=== PATIENT | male | born 1945 | race Caucasian/White ===

== ENCOUNTER 2016-12-23 20:16 | Emergency (ER) | payer OTHER ==
[2016-12-23 20:35] LABS: % IMMATURE GRANULYOCYTES 0.3 % (0.0-1.1); ABSOLUTE IMMATURE GRANULOCYTES 0.03 10^3/uL (0.00-0.10); ADD DIFF? NO; ADD MORPH? NO; ADD SCAN? NO; ATYPICAL LYMPHOCYTE FLAG 0 (0-99); FRAGMENT RBC FLAG 0 (0-99); HEMATOCRIT 47.9 % (40.0-51.0); HEMOGLOBIN 15.9 g/dL (13.7-17.5); LEFT SHIFT FLG 0 (0-99); LIPEMIA HEMOLYSIS FLAG 80 (0-99); MEAN CELL HEMOGLOBIN 29.2 pg (27.9-34.1); MEAN CELL HEMOGLOBIN CONCENTR. 33.2 g/dL (32.4-36.7); MEAN CELL VOLUME 88.1 fL (81.5-99.8); MEAN PLATELET VOLUME 11.3 fL (8.7-11.7); PLATELET CLUMPS FLAG 0 (0-99); PLATELET COUNT 181 10^3/uL (150-400); RED BLOOD CELL COUNT 5.44 10^6/uL (4.40-6.38); RED CELL DISTRIBUTION WIDTH 13.2 % (11.5-15.2)
--- NOTE | 2016-12-23 20:35 | EDPHY ---
H & P Time Seen by Provider: 12/23/16 20:21 HPI/ROS: CHIEF COMPLAINT: Hypertension HISTORY OF PRESENT ILLNESS: Patient is a 69-year-old male with a complicated recent past medical history. The patient has a history of NHL, followed by Dr. Davis. Patient was diagnosed with West Nile virus in 2014. He has been 6 and half weeks in the hospital. Sequelae from his virus included ataxia , dysarthria, visual change, weakness. He currently has 24/7 nursing care. Patient states that earlier today he felt more fatigued than normal. His night nurse came in this evening and found to be hypertensive. His blood pressure was 220/100. However, at that time the patient was asymptomatic as he is now. He has no complaints of headache, chest pain, shortness of breath, new weakness , new numbness. The patient has had neck pain recently but none currently. He denies fevers or chills. REVIEW OF SYSTEMS: My complete review of systems is negative except as mentioned in the HPI. Past Medical/Surgical History: Includes West Nile virus, non-Hodgkin's lymphoma, gout, hypertension, hyperlipidemia Social history: Patient is . No drugs or alcohol. Smoking Status: Never smoked Physical Exam: Vitals noted. When I evaluated the patient his blood pressure was 177/72. GENERAL: No acute distress, alert. Smiling. HEENT: Eyes normal to inspection, normal pharynx, no signs of dehydration. NECK: No thyromegaly, no lymphadenopathy, supple. RESPIRATORY: Clear to auscultation bilaterally, no rales, rhonchi or wheezing. CVS: Regular rate and rhythm, no rubs, murmurs, or gallops. ABDOMEN: Soft, nontender, nondistended, no organomegaly. BACK: Normal to inspection, no CVA tenderness. SKIN: Normal color, no rash, warm, dry. No pallor. EXTREMITIES: No pedal edema, no calf tenderness, no Homans sign or cords, no joint swelling. NEURO/PSYCH: Alert and oriented x3, normal mood and affect. Patient is able to move both his upper and lower extremities. However, the patient does not have ataxia in all extremities. The patient has dysarthria. No obvious cranial nerve deficit. Constitutional: Initial Vital Signs Temperature (C) 36.9 C 12/23/16 20:26 Heart Rate 55 L 12/23/16 20:26 Respiratory Rate 17 12/23/16 20:26 Blood Pressure 177/72 H 12/23/16 20:26 O2 Sat (%) 92 12/23/16 20:26 O2 Delivery Mode Room Air Allergies/Adverse Reactions: diphenhydramine HCl [From Benadryl] Allergy (Verified 09/18/16 14:11) INTOLERANCE fentanyl Allergy (Verified 09/18/16 14:11) INTOLERANCE hydromorphone HCl [From Dilaudid] Allergy (Verified 09/18/16 14:11) INTOLERANCE oxycodone Allergy (Verified 09/18/16 14:11) INTOLERANCE pseudoephedrine HCl [From Sudafed] Allergy (Verified 09/18/16 14:11) INTOLERANCE tramadol Allergy (Verified 09/18/16 14:11) INTOLERANCE Home Medications: Medication Instructions Recorded Ibrutinib [Imbruvica] 420 mg PO DAILY 08/30/15 Allopurinol [Allopurinol 100 MG 100 mg PO DAILY #0 tab 10/04/15 (*)] Atorvastatin Calcium [Lipitor 20 20 mg PO HS #0 tab 10/04/15 mg (*)] Aspirin [Aspirin 81mg (*)] 81 mg PO DAILY 04/04/16 Losartan Potassium 12/23/16 Sertraline HCl 12/23/16 Medical Decision Making ED Course/Re-evaluation: In the emergency department I discussed possible etiologies with the patient and his . I answered all her questions. Laboratory studies and EKG were ordered. Rechecked the patient while here. His laboratory studies were unremarkable. Troponin was negative. Sinus bradycardia 48. Incomplete right bundle-branch block. Patient has flipped T-wave in III. Repeat EKG unchanged. I discussed the results with the patient. No complaints at this time. Follow up his primary care physician tomorrow. He was given warnings prior to leaving. Differential Diagnosis: My differential includes but is not limited to hypertensive urgency, hypertensive emergency, renal dysfunction, ACS, acute GA, dissection, aneurysm, CVA - Data Points Laboratory Results: Laboratory Results 12/23/16 20:00 12/23/16 20:00 12/23/16 12/23/16 20:00 20:00 WBC 11.56 10^3/uL H 10^3/uL (3.80-9.50) RBC 5.44 10^6/uL 10^6/uL (4.40-6.38) Hgb 15.9 g/dL g/dL (13.7-17.5) Hct 47.9 % % (40.0-51.0) MCV 88.1 fL fL (81.5-99.8) MCH 29.2 pg pg (27.9-34.1) MCHC 33.2 g/dL g/dL (32.4-36.7) RDW 13.2 % % (11.5-15.2) Plt Count 181 10^3/uL 10^3/uL (150-400) MPV 11.3 fL fL (8.7-11.7) Neut % (Auto) 43.2 % % (39.3-74.2) Lymph % (Auto) 48.4 % H % (15.0-45.0) [place] % (Auto) 6.3 % % (4.5-13.0) Eos % (Auto) 0.8 % % (0.6-7.6) Baso % (Auto) 1.0 % % (0.3-1.7) Nucleat RBC Rel Count 0.0 % % (0.0-0.2) Absolute Neuts (auto) 5.00 10^3/uL 10^3/uL (1.70-6.50) Absolute Lymphs (auto) 5.60 10^3/uL H 10^3/uL (1.00-3.00) Absolute Monos (auto) 0.73 10^3/uL 10^3/uL (0.30-0.80) Absolute Eos (auto) 0.09 10^3/uL 10^3/uL (0.03-0.40) Absolute Basos (auto) 0.11 10^3/uL H 10^3/uL (0.02-0.10) Absolute Nucleated RBC 0.00 10^3/uL 10^3/uL (0-0.01) Immature Gran % 0.3 % % (0.0-1.1) Immature Gran # 0.03 10^3/uL 10^3/uL (0.00-0.10) Sodium 144 mEq/L mEq/L (134-144) Potassium 4.6 mEq/L mEq/L (3.5-5.2) Chloride 101 mEq/L mEq/L (97-110) Carbon Dioxide 32 mEq/l H mEq/l (22-31) Anion Gap 11 mEq/L mEq/L (8-16) BUN 22 mg/dL mg/dL (7-23) Creatinine 0.8 mg/dL mg/dL (0.7-1.3) Estimated GFR > 60 Glucose 88 mg/dL mg/dL (70-100) Calcium 10.0 mg/dL mg/dL (8.5-10.4) Troponin I < 0.012 ng/mL ng/mL (0-0.034) Departure - Departure Disposition: Home, Routine, Self-Care Clinical Impression: Hypertension Qualifiers: Hypertension type: essential hypertension Qualified Code(s): I10 - Essential ( primary) hypertension Condition: Fair Instructions: Hypertension (ED) Additional Instructions: Return with increasing blood pressures, chest pain, shortness of breath or any other concerns. Referrals: RIKY LEWIS [Other] - 1-2 days without fail
--- NOTE | 2016-12-23 20:50 | CPEKG ---
Heart Rate: 48 RR Interval: 1250 P-R Interval: 188 QRSD Interval: 104 QT Interval: 484 QTC Interval: 433 P [place]: 28 QRS [place]: -88 T Wave [place]: 13 EKG Severity - ABNORMAL ECG - EKG Impression: SINUS BRADYCARDIA EKG Impression: INCOMPLETE RBBB AND LAFB EKG Impression: RIGHT VENTRICULAR HYPERTROPHY EKG Impression: ST DEPRESSION, CONSIDER ISCHEMIA, ANT-LAT LDS Electronically Signed By: Avril Peter 23-Dec-2016 22:25:36
[2016-12-23 21:11] LABS: ANION GAP 11 mEq/L (8-16); CARBON DIOXIDE 32 mEq/l (22-31); CHLORIDE 101 mEq/L (97-110); CREATININE 0.8 mg/dL (0.7-1.3); GLOMERULAR FILTRATION RATE > 60; GLUCOSE 88 mg/dL (70-100); POTASSIUM 4.6 mEq/L (3.5-5.2); SODIUM 144 mEq/L (134-144)
[2016-12-23 21:22] VITALS: O2SAT 91
[2016-12-23 21:30] LABS: TROPONIN I < 0.012 ng/mL (0-0.034)
[2016-12-23 22:16] VITALS: BP 157/68; PULSE 48; RESP 20; TEMP 97.5
--- NOTE | 2016-12-24 08:29 | CPEKG ---
Heart Rate: 49 RR Interval: 1224 P-R Interval: 208 QRSD Interval: 108 QT Interval: 480 QTC Interval: 434 P [place]: 56 QRS [place]: -84 T Wave [place]: -2 EKG Severity - ABNORMAL ECG - EKG Impression: SINUS BRADYCARDIA EKG Impression: INCOMPLETE RBBB AND LAFB EKG Impression: ST DEPRESSION, CONSIDER ISCHEMIA, DIFFUSE LDS Electronically Signed By: Jorge Turner 24-Dec-2016 08:39:00
== END 2016-12-23 22:16 | disposition home or self-care (01) ==
LOC: EDUNIT#
DX: I10 Essential (primary) hypertension (principal); Z79.82 Long term (current) use of aspirin

== ENCOUNTER → 2017-01-11 | Outpatient (CLI) | payer OTHER | LOC: BHCLAF 10:30 | PROVIDERS: ATTEND Internal Medicine Cardiovascular Disease | DX: I10 Essential (primary) hypertension (principal); E78.5 Hyperlipidemia, unspecified | CPT/HCPCS: 93005-PO ==

== ENCOUNTER → 2017-01-17 | Outpatient (CLI) | payer OTHER | LOC: FIMAGING 13:08 | PROVIDERS: ATTEND Nurse Practitioner | DX: R05 Cough (principal); R91.8 Other nonspecific abnormal finding of lung field ==

== ENCOUNTER → 2017-01-18 | Outpatient (CLI) | payer OTHER | LOC: BHFA 15:30 | PROVIDERS: ATTEND Internal Medicine Cardiovascular Disease | DX: R53.83 Other fatigue (principal) ==

== ENCOUNTER 2017-01-19 10:18 | Inpatient (IN) | payer OTHER ==
--- NOTE | 2017-01-19 10:27 | EDPHY ---
H & P Time Seen by Provider: 01/19/17 10:26 HPI/ROS: CHIEF COMPLAINT: Fever and weakness HISTORY OF PRESENT ILLNESS: The patient initially went to [facility] to see his primary care provider and was sent here. Patient started getting sick 6 days ago with intermittent fevers to 100.5 with increasing weakness. he had a chest x-ray that was negative. Today continues with severe weakness and is unable to walk even with assistance. There is a report that he was slightly more weak on the left sided his primary care physician's office but the patient denies having that symptom here to me. Generalized weakness is not better worse with anything. Associated with intermittent fevers. Not focal. REVIEW OF SYSTEMS: Eye: Patient has chronic double vision since his West Nile uses a prism glasses , no change. ENT: no sore throat Cardiac: no chest pain or syncope Pulmonary: Cough and chest congestion with no hemoptysis and does not feel short of breath. Abdomen: no vomiting, diarrhea, abdominal pain Musculoskeletal: no back pain Skin: no rash Neuro: Mild headache but not sudden onset or worst of life. Chronically slurred speech since but says it is worse today. Constitutional: Fever and chills : no urinary symptoms A comprehensive 10 point review of systems is otherwise negative aside from elements mentioned in the history of present illness. PAST MEDICAL HISTORY: Includes hypertension, prostate cancer, non-Hodgkin's lymphoma, gout, hyperlipidemia. West Nile virus in 2015. Has a equipment monitor phototypesetting placed yesterday by [facility] for persistent bradycardia. Social history: No recent foreign travel General Appearance: Alert and conversant, cooperative. Eyes: No scleral icterus. ENT, Mouth: Normal mucous membranes. No pharyngeal erythema or exudate and no trismus. Respiratory: Normal respiratory effort, breath sounds equal, lungs are clear to auscultation. Cardiovascular: Regular rate and rhythm. No murmur. Gastrointestinal: Abdomen is soft and non tender. Neurological: Alert and oriented x3. Some slurring of the speech which is chronic. left facial droop, normal movement and sensation in all extremities. On my exam he has good channel installer strength bilaterally and can lift each leg off the bed independently. I do not appreciate any left-sided weakness in extremities on physical exam at the time of my evaluation. Skin: Warm and dry, no rashes. Musculoskeletal: No peripheral edema and no joint swelling. Neck as full range of motion without any meningeal signs. Psychiatric: Not agitated. Emergency Department course/MDM: Plan for infection screen with chest x-ray urinalysis and influenza testing. Noncontrast head CT. Plan for admission for further evaluation of weakness. 1210: Results discussed. No evidence for pneumonia UTI or influenza. 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 Does not have focal deficit on exam to suggest acute stroke, CT head negative for acute. Admission for supportive care. Likely nonspecific viral syndrome creating debilitating weakness in a patient with multiple pre-existing conditions. Smoking Status: Never smoked Constitutional: Initial Vital Signs Temperature (C) 36.9 C 01/19/17 10:22 Heart Rate 48 L 01/19/17 10:22 Respiratory Rate 20 01/19/17 10:22 Blood Pressure 139/60 H 01/19/17 10:22 O2 Sat (%) 94 01/19/17 10:22 O2 Delivery Mode Nasal Cannula O2 (L/minute) 2 Allergies/Adverse Reactions: diphenhydramine HCl [From Benadryl] Allergy (Verified 01/19/17 10:22) INTOLERANCE fentanyl Allergy (Verified 01/19/17 10:22) INTOLERANCE hydromorphone HCl [From Dilaudid] Allergy (Verified 01/19/17 10:22) INTOLERANCE oxycodone Allergy (Verified 01/19/17 10:22) INTOLERANCE pseudoephedrine HCl [From Sudafed] Allergy (Verified 01/19/17 10:22) INTOLERANCE tramadol Allergy (Verified 01/19/17 10:22) INTOLERANCE Home Medications: Medication Instructions Recorded Ibrutinib [Imbruvica] 420 mg PO DAILY 08/30/15 Allopurinol [Allopurinol 100 MG 100 mg PO DAILY #0 tab 10/04/15 (*)] Atorvastatin Calcium [Lipitor 20 20 mg PO HS #0 tab 10/04/15 mg (*)] Aspirin [Aspirin 81mg (*)] 81 mg PO DAILY 04/04/16 Docusate Sodium [Colace 100 MG (*)] 100 mg PO BID 01/19/17 Famotidine [Pepcid 20 MG (*)] 20 mg PO BID 01/19/17 Herbals/Supplements -Info Only 1 ea PO DAILY 01/19/17 Lidocaine 5% [Lidoderm 5% Patch 1 ea TD HS 01/19/17 (*)] Losartan Potassium [Cozaar] 100 mg PO DAILY 01/19/17 Sertraline HCl [Zoloft 50mg (*)] 50 mg PO DAILY 01/19/17 Medical Decision Making - Diagnostics EKG Interpretation: 12-lead EKG interpreted by me; official reading is in trace master. My interpretation is sinus bradycardia with left anterior fascicular block, morphology not significantly changed since [facility]. Imaging: Noncontrast head CT per Dr. Oakes negative for acute abnormality at 11:56 a.m. Differential Diagnosis: Differential diagnosis considered for weakness including but not limited to electrolyte abnormality, depression, anxiety, CVA, spinal cord abnormality, and infectious causes. Consult/Admit Bed Type: [place] [id number] - Data Points Laboratory Results: Laboratory Results 01/19/17 10:36 01/19/17 10:36 01/19/17 01/19/17 01/19/17 11:20 10:36 10:36 WBC RBC Hgb POC Hgb Hct POC Hct MCV MCH MCHC RDW Plt Count MPV Neut % (Auto) Lymph % (Auto) [place] % (Auto) Eos % (Auto) Baso % (Auto) Nucleat RBC Rel Count Absolute Neuts (auto) Absolute Lymphs (auto) Absolute Monos (auto) Absolute Eos (auto) Absolute Basos (auto) Absolute Nucleated RBC Immature Gran % Immature Gran # PT INR APTT VBG Lactic Acid POC Sodium Sodium 142 mEq/L mEq/L (134-144) POC Potassium Potassium 3.8 mEq/L mEq/L (3.5-5.2) POC Chloride Chloride 100 mEq/L mEq/L (97-110) Carbon Dioxide 31 mEq/l mEq/l (22-31) Anion Gap 11 mEq/L mEq/L (8-16) POC BUN BUN 18 mg/dL mg/dL (7-23) Creatinine 0.8 mg/dL mg/dL (0.7-1.3) POC Creatinine Estimated GFR > 60 Glucose 84 mg/dL mg/dL (70-100) POC Glucose Calcium 9.6 mg/dL mg/dL (8.5-10.4) Total Bilirubin 1.0 mg/dL mg/dL (0.1-1.4) Urine Color TNP Urine Appearance TNP Urine pH TNP Ur Specific Colp TNP Urine Protein TNP Urine Ketones TNP Urine Blood TNP Urine Nitrate TNP Urine Bilirubin TNP Urine Urobilinogen TNP Ur Leukocyte Esterase TNP Urine RBC 3-5 /hpf H /hpf (0-3) Urine WBC 3-5 /hpf H /hpf (0-3) Ur Epithelial Cells TRACE /lpf /lpf (NONE-1+) Urine Mucus TRACE /lpf /lpf (NONE-1+) Urine Glucose TNP Influenza Typ A,B (DFA) NEGATIVE FOR FLU (NEGATIVE) 01/19/17 01/19/17 01/19/17 10:36 10:36 10:36 WBC 10.98 10^3/uL H 10^3/uL (3.80-9.50) RBC 5.37 10^6/uL 10^6/uL (4.40-6.38) Hgb 15.5 g/dL g/dL (13.7-17.5) POC Hgb Hct 46.5 % % (40.0-51.0) POC Hct MCV 86.6 fL fL (81.5-99.8) MCH 28.9 pg pg (27.9-34.1) MCHC 33.3 g/dL g/dL (32.4-36.7) RDW 13.2 % % (11.5-15.2) Plt Count 180 10^3/uL 10^3/uL (150-400) MPV 11.0 fL fL (8.7-11.7) Neut % (Auto) 61.9 % % (39.3-74.2) Lymph % (Auto) 29.4 % % (15.0-45.0) [place] % (Auto) 7.2 % % (4.5-13.0) Eos % (Auto) 0.4 % L % (0.6-7.6) Baso % (Auto) 0.8 % % (0.3-1.7) Nucleat RBC Rel Count 0.0 % % (0.0-0.2) Absolute Neuts (auto) 6.80 10^3/uL H 10^3/uL (1.70-6.50) Absolute Lymphs (auto) 3.23 10^3/uL H 10^3/uL (1.00-3.00) Absolute Monos (auto) 0.79 10^3/uL 10^3/uL (0.30-0.80) Absolute Eos (auto) 0.04 10^3/uL 10^3/uL (0.03-0.40) Absolute Basos (auto) 0.09 10^3/uL 10^3/uL (0.02-0.10) Absolute Nucleated RBC 0.00 10^3/uL 10^3/uL (0-0.01) Immature Gran % 0.3 % % (0.0-1.1) Immature Gran # 0.03 10^3/uL 10^3/uL (0.00-0.10) PT 13.3 SEC SEC (12.0-15.0) INR 1.02 (0.83-1.16) APTT 29.2 SEC SEC (23.0-38.0) VBG Lactic Acid 1.0 mmol/L mmol/L (0.7-2.1) POC Sodium Sodium POC Potassium Potassium POC Chloride Chloride Carbon Dioxide Anion Gap POC BUN BUN Creatinine POC Creatinine Estimated GFR Glucose POC Glucose Calcium Total Bilirubin Urine Color Urine Appearance Urine pH Ur Specific Colp Urine Protein Urine Ketones Urine Blood Urine Nitrate Urine Bilirubin Urine Urobilinogen Ur Leukocyte Esterase Urine RBC Urine WBC Ur Epithelial Cells Urine Mucus Urine Glucose Influenza Typ A,B (DFA) 01/19/17 10:34 WBC RBC Hgb POC Hgb 16.0 gm/dL gm/dL (14.5-17.3) Hct POC Hct 47 % % (42.8-50.6) MCV MCH MCHC RDW Plt Count MPV Neut % (Auto) Lymph % (Auto) [place] % (Auto) Eos % (Auto) Baso % (Auto) Nucleat RBC Rel Count Absolute Neuts (auto) Absolute Lymphs (auto) Absolute Monos (auto) Absolute Eos (auto) Absolute Basos (auto) Absolute Nucleated RBC Immature Gran % Immature Gran # PT INR APTT VBG Lactic Acid POC Sodium 141 mEq/L mEq/L (134-144) Sodium POC Potassium 3.6 mEq/L mEq/L (3.3-5.0) Potassium POC Chloride 98 mEq/L mEq/L (96-108) Chloride Carbon Dioxide Anion Gap POC BUN 18 mg/dL mg/dL (7-23) BUN Creatinine POC Creatinine 0.8 mg/dL mg/dL (0.8-1.5) Estimated GFR Glucose POC Glucose 86 mg/dL mg/dL (70-100) Calcium Total Bilirubin Urine Color Urine Appearance Urine pH Ur Specific Colp Urine Protein Urine Ketones Urine Blood Urine Nitrate Urine Bilirubin Urine Urobilinogen Ur Leukocyte Esterase Urine RBC Urine WBC Ur Epithelial Cells Urine Mucus Urine Glucose Influenza Typ A,B (DFA) Medications Given: Discontinued Medications Sodium Chloride (Ns) 1,000 mls @ 3,000 mls/hr IV ONCE ONE Stop: 01/19/17 12:39 Last Admin: 01/19/17 12:30 Dose: 1,000 mls Point of Care Test Results: 01/19/17 10:34 POC Sodium 141 POC Potassium 3.6 POC Chloride 98 POC BUN 18 POC Creatinine 0.8 POC Glucose 86 Departure - Departure Disposition: [facility] Inpatient Acute Clinical Impression: Weakness Condition: Fair
[2017-01-19 10:47] LABS: % IMMATURE GRANULYOCYTES 0.3 % (0.0-1.1); ABSOLUTE IMMATURE GRANULOCYTES 0.03 10^3/uL (0.00-0.10); ADD DIFF? NO; ADD MORPH? NO; ADD SCAN? NO; ATYPICAL LYMPHOCYTE FLAG 0 (0-99); FRAGMENT RBC FLAG 0 (0-99); HEMATOCRIT 46.5 % (40.0-51.0); HEMOGLOBIN 15.5 g/dL (13.7-17.5); LEFT SHIFT FLG 0 (0-99); LIPEMIA HEMOLYSIS FLAG 80 (0-99); MEAN CELL HEMOGLOBIN 28.9 pg (27.9-34.1); MEAN CELL HEMOGLOBIN CONCENTR. 33.3 g/dL (32.4-36.7); MEAN CELL VOLUME 86.6 fL (81.5-99.8); PLATELET CLUMPS FLAG 0 (0-99); PLATELET COUNT 180 10^3/uL (150-400); RED BLOOD CELL COUNT 5.37 10^6/uL (4.40-6.38); RED CELL DISTRIBUTION WIDTH 13.2 % (11.5-15.2)
--- NOTE | 2017-01-19 10:55 | CPEKG ---
Heart Rate: 46 RR Interval: 1304 P-R Interval: 188 QRSD Interval: 114 QT Interval: 476 QTC Interval: 417 P [place]: 41 QRS [place]: 261 T Wave [place]: 8 EKG Severity - ABNORMAL ECG - EKG Impression: SINUS BRADYCARDIA EKG Impression: LEFT ANTERIOR FASCICULAR BLOCK EKG Impression: PROBABLE POSTERIOR INFARCT Electronically Signed By: Basilio Wise 19-Jan-2017 10:56:11
[2017-01-19 11:06] LABS: INR 1.02 (0.83-1.16); PROTIME(PATIENT) 13.3 SEC (12.0-15.0)
[2017-01-19 11:07] LABS: APTT 29.2 SEC (23.0-38.0)
[2017-01-19 11:11] LABS: ANION GAP 11 mEq/L (8-16); CALCIUM 9.6 mg/dL (8.5-10.4); CARBON DIOXIDE 31 mEq/l (22-31); CHLORIDE 100 mEq/L (97-110); CREATININE 0.8 mg/dL (0.7-1.3); GLOMERULAR FILTRATION RATE > 60; GLUCOSE 84 mg/dL (70-100); POTASSIUM 3.8 mEq/L (3.5-5.2); SODIUM 142 mEq/L (134-144)
[2017-01-19 12:07] LABS: MUCUS TRACE /lpf (NONE-1+)
[2017-01-19] MEDS ORDERED: ONDANSETRON DISINTEGRATING 4 MG TAB PO PRN (12:20)
[2017-01-19] MEDS ORDERED: ACETAMINOPHEN 325 MG TAB PO PRN (12:20)
[2017-01-19] MEDS ORDERED: ONDANSETRON 4 MG/2 ML VIAL IVP PRN (12:20)
[2017-01-19] MEDS ORDERED: NS 1,000 ML IV ONE (12:20)
[2017-01-19 14:59] LABS: COLOR YELLOW; LEUKOCYTE ESTERASE,URINE NEGATIVE (NEGATIVE); NITRITE,URINE NEGATIVE (NEGATIVE)
[2017-01-19] MEDS: NS 1,000 ML IV SCH (15:41)
--- NOTE | 2017-01-19 15:52 | GHP ---
[f rep st] HISTORY AND PHYSICAL DATE OF ADMISSION: 01/19/2017 CHIEF COMPLAINT: Weakness. 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 The patient endorses some runny nose and sore throat, minimal nonproductive cough, some headache, chronic vision changes, which have been a bit worse in the last 4 days. The patient denies any shortness of breath, any chest pain, any abdominal pain. Denies any diarrhea, dysuria, hematuria, new rashes, myalgias, arthralgias, or lower extremity edema. PAST MEDICAL HISTORY: 1. West Nile virus in 2015- with flaccid paralysis - persistent double vision, dysarthria, gait instability and dysphagia 2. Non-Hodgkin's lymphoma. 3. Prostate cancer. 4. Hypertension. 5. Gout. 6. Hyperlipidemia. 7. Chronic bradycardia with recent placement of a monitor. SOCIAL HISTORY: Negative for tobacco, alcohol or illicit drugs. FAMILY HISTORY: No known neurologic disorders. ADVANCED DIRECTIVES: Patient is full cor, full tube. His would be his medical decision maker. REVIEW OF SYSTEMS: A 10-point review of systems is negative with the exception of that reported in the HPI. PHYSICAL EXAMINATION: VITAL SIGNS: Blood pressure 163/66, heart rate 51, respiratory rate 16, 94% on 2 L, 36.8. GENERAL: This is a healthy-appearing, middle-aged male, lying flat in bed. HEENT: Notable for dry mucous membranes. Eye exam is negative for any icterus. CARDIAC: Patient is regular rhythm, but bradycardic. Quiet systolic murmur is appreciated. PULMONARY: Patient has good respiratory effort, is clear to auscultation bilaterally. GASTROINTESTINAL: Positive bowel sounds. Abdomen is soft and nontender to palpation in all 4 quadrants. MUSCULOSKELETAL: Negative for any lower extremity edema. SKIN: Negative for any rashes. NEUROLOGIC: The patient has both dysarthria, and a resting tremor noted. PSYCHIATRIC: He is very pleasant and cooperative on interview and examination. DATA: White count 10.9, hematocrit 46.5, platelet count of 180. INR of 1.02. Creatinine 0.8. Electrolytes are normal. Urinalysis shows 3-5 red blood cells , 3-5 white. Chest x-ray, which I personally reviewed and interpreted, shows no acute infiltrates or edema. Noncontrast CT of the head shows no acute intracranial abnormality. ASSESSMENT AND PLAN: This is a 71-year-old male with chronic neurologic deficits, including gait instability, weakness and dysarthria from West Nile virus, who presents with acute worsening of these symptoms. 1. Acute weakness. The patient is also presenting with symptoms of a new upper respiratory infection, likely viral. Based on severity of symptoms, suspect this systemic weakness we are seeing is a prodrome to the likely infection. Plan to hydrate with IV fluids, send influenza PCR, blood cultures, urine cultures to find a source. We will order PT, OT, and speech therapy, and we will make either antiviral or antibiotic choices based on results of the data. 2. Upper respiratory infection, suspect viral, again sending influenza PCR. If positive we will initiate Tamiflu, as symptoms have just recently started. Otherwise, we will hydrate and provide supportive care. 3. Non-Hodgkin's lymphoma. The patient takes daily chemotherapy, which his will bring. We will continue this at this time. 4. History of West Nile virus and remnant neurologic deficits. Patient's diagnosis of West Nile was very complicated, needless to say, they are worried about another complicated viral diagnosis. I spent greater than 20 minutes at bedside reassuring the family that the data at this point is not worrisome for markedly severe underlying illness. I do believe the patient's comorbidities warrants inpatient monitoring and supportive care. 5. Diet. Per his speech therapy recommendations. 6. Prophylaxis with Lovenox. DISPOSITION: Greater than 2 midnights, as the patient is going to require more diagnostic workup and supportive care before strong enough or safe enough to return home. We discussed the case with the emergency room physician and the floor nurse. We will admit to [facility] for IV fluids and diagnostics. /[id number]/MODL MTDD
[2017-01-19] MEDS: FAMOTIDINE 20 MG TAB PO SCH (21:29)
[2017-01-19] MEDS: LIDOCAINE 5% 1 EA PATCH TD SCH (21:29)
[2017-01-19] MEDS: ATORVASTATIN CALCIUM 20 MG TAB PO SCH (21:29)
[2017-01-19] MEDS: DOCUSATE SODIUM 100 MG CAP PO SCH (21:29)
[2017-01-20] MEDS: NS 1,000 ML IV SCH ×3 (02:16→17:48)
[2017-01-20 04:59] LABS: % IMMATURE GRANULYOCYTES 0.3 % (0.0-1.1); ABSOLUTE IMMATURE GRANULOCYTES 0.03 10^3/uL (0.00-0.10); ADD DIFF? NO; ADD MORPH? NO; ADD SCAN? NO; ATYPICAL LYMPHOCYTE FLAG 0 (0-99); FRAGMENT RBC FLAG 10 (0-99); HEMATOCRIT 39.3 % (40.0-51.0); HEMOGLOBIN 13.1 g/dL (13.7-17.5); LEFT SHIFT FLG 0 (0-99); LIPEMIA HEMOLYSIS FLAG 80 (0-99); MEAN CELL HEMOGLOBIN CONCENTR. 33.3 g/dL (32.4-36.7); MEAN CELL VOLUME 86.9 fL (81.5-99.8); MEAN PLATELET VOLUME 10.8 fL (8.7-11.7); PLATELET CLUMPS FLAG 10 (0-99); PLATELET COUNT 145 10^3/uL (150-400); RED BLOOD CELL COUNT 4.52 10^6/uL (4.40-6.38)
[2017-01-20 05:13] LABS: ANION GAP 7 mEq/L (8-16); CALCIUM 8.5 mg/dL (8.5-10.4); CARBON DIOXIDE 25 mEq/l (22-31); CHLORIDE 105 mEq/L (97-110); CREATININE 0.6 mg/dL (0.7-1.3); GLOMERULAR FILTRATION RATE > 60; GLUCOSE 89 mg/dL (70-100); SODIUM 137 mEq/L (134-144)
[2017-01-20] MEDS: FAMOTIDINE 20 MG TAB PO SCH ×2 (08:25→20:26)
[2017-01-20] MEDS: LOSARTAN POTASSIUM 50 MG TAB PO SCH (08:25)
[2017-01-20] MEDS: ASPIRIN 81 MG CHEWABLE TAB PO SCH (08:26)
[2017-01-20] MEDS: DOCUSATE SODIUM 100 MG CAP PO SCH ×2 (08:26→20:25)
[2017-01-20] MEDS: ENOXAPARIN 40 MG/0.4 ML SYR SC SCH (08:27)
[2017-01-20] MEDS: IBRUTINIB 420 MG PO SCH (08:27)
[2017-01-20] MEDS: ALLOPURINOL 100 MG TAB PO SCH (08:30)
[2017-01-20] MEDS: SERTRALINE HCL 50 MG TAB PO SCH (08:30)
[2017-01-20] MEDS ORDERED: NON-FORMULARY NEW DRUG (Losartan Potassium [Cozaar] 100 MG) PO SCH (09:00)
[2017-01-20] MEDS ORDERED: Herbals/Supplements -Info Only PO SCH (09:00)
--- NOTE | 2017-01-20 12:20 | HOSPPROG ---
Hospitalist Progress Note Assessment/Plan: 71-year-old male with chronic neurologic deficits, including gait instability, weakness and dysarthria from West Nile virus, who presents with acute worsening of these symptoms. # Acute Upper respiratory infection- suspect viral- influenza PCR- negative on admit - still with rhinorrhea and cough overnight suspicion remains high for viral pathogen - send viral respiratory PCR panel today - continue respiratory supportive care # acute leukocytosis- WBC count greater than 10 at admission- has normalized to 8 overnight with supportive care alone oxygen saturations 94% on room air - chest x-ray( personally reviewed and interpreted) without infiltrates concerning for pneumonia - monitor daily # Acute weakness- we are seeing some improvement in the patient's dysarthria overnight with fluid resuscitation however remains quite weak peripherally continue to believe this is related to acute viral infection at presentation - no indication to initiate antibiotic therapy at this time - continue fluid resuscitation while p.o. intake is down - PT OT and speech therapy - continue workup for underlying viral process # Non-Hodgkin's lymphoma- continue daily chemotherapy, which his will bring. # History of West Nile virus and remnant neurologic deficits- continue supportive care as above # Diet- Per his speech therapy recommendations. # Prophylaxis with Lovenox. # disposition greater than 2 midnights as the patient is quite fragile from his medical comorbidities requires more diagnostic workup and therapy care prior to disposition I have discussed the case with the RN- we will continue IV fluid resuscitation while patient's p.o. intake is low Subjective: still feels very weak Objective: Vital Signs Temp Pulse Resp BP Pulse Ox 36.6 C 52 L 18 130/59 H 95 01/20/17 10:00 01/20/17 10:00 01/20/17 10:00 01/20/17 10:00 01/20/17 10:00 Laboratory Results 01/20/17 04:35 01/20/17 04:35 01/19/17 01/20/17 01/21/17 05:59 05:59 05:59 Intake Total 3520 Output Total 450 Balance 3070 PT 13.3 SEC (12.0-15.0) 01/19/17 10:36 INR 1.02 (0.83-1.16) 01/19/17 10:36 - Physical Exam Constitutional: chronically ill appearing Eyes: anicteric sclera Ears, Nose, Mouth, Throat: dry mucous membranes Cardiovascular: regular rate and rhythym, systolic murmur Respiratory: no respiratory distress, no rales or rhonchi Gastrointestinal: normoactive bowel sounds, soft, non-tender abdomen Genitourinary: no bladder fullness Skin: warm, normal color Musculoskeletal: No asymmetric calves Neurologic: AAOx3, weakness, No facial droop Psychiatric: interacting appropriately Lymph, Heme, Immunologic: no cervical LAD ICD10 Worksheet Patient Problems: Problems Problem Status Onset Weakness Acute Altered mental status Acute Colon perforation Acute Fever Acute Hypogammaglobulinemia, acquired Acute 06/28/15 Malnutrition following gastrointestinal surgery Acute PEG (percutaneous endoscopic gastrostomy) status Acute Peritonitis Acute Post viral debility 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
[2017-01-20] MEDS: ATORVASTATIN CALCIUM 20 MG TAB PO SCH (20:25)
[2017-01-20] MEDS: LIDOCAINE 5% 1 EA PATCH TD SCH (20:26)
[2017-01-21] MEDS: NS 1,000 ML IV SCH (04:58)
[2017-01-21 08:16] VITALS: BP 153/58; PULSE 42; RESP 18; TEMP 98.4; O2SAT 91
[2017-01-21] MEDS: ENOXAPARIN 40 MG/0.4 ML SYR SC SCH (09:00)
[2017-01-21] MEDS: ALLOPURINOL 100 MG TAB PO SCH (09:00)
[2017-01-21] MEDS: IBRUTINIB 420 MG PO SCH (09:00)
[2017-01-21] MEDS: SERTRALINE HCL 50 MG TAB PO SCH (09:00)
[2017-01-21] MEDS: FAMOTIDINE 20 MG TAB PO SCH (09:00)
[2017-01-21] MEDS: LOSARTAN POTASSIUM 50 MG TAB PO SCH (09:01)
[2017-01-21] MEDS: ASPIRIN 81 MG CHEWABLE TAB PO SCH (09:01)
[2017-01-21] MEDS: DOCUSATE SODIUM 100 MG CAP PO SCH (09:01)
--- NOTE | 2017-01-21 09:25 | PDIAF ---
- Diagnosis Diagnosis: viral syndrome and weakness Code Status: Full Code - Medication Management Discharge Medications: Medications to Continue on Transfer Ibrutinib [Imbruvica] 420 mg PO DAILY 08/30/15 [Last Taken 01/19/17] Allopurinol [Allopurinol 100 MG (*)] 100 mg PO DAILY #0 tab 10/04/15 [Last Taken 04/04/16] Atorvastatin Calcium [Lipitor 20 mg (*)] 20 mg PO HS #0 tab 10/04/15 [Last Taken 04/03/16] Aspirin [Aspirin 81mg (*)] 81 mg PO DAILY 04/04/16 [Last Taken 01/19/17] Docusate Sodium [Colace 100 MG (*)] 100 mg PO BID 01/19/17 [Last Taken 01/18/17] Famotidine [Pepcid 20 MG (*)] 20 mg PO BID 01/19/17 [Last Taken 01/18/17] Herbals/Supplements -Info Only 1 ea PO DAILY 01/19/17 [Last Taken Unknown] Lidocaine 5% [Lidoderm 5% Patch (*)] 1 ea TD HS 01/19/17 [Last Taken 01/18/17] Losartan Potassium [Cozaar] 100 mg PO DAILY 01/19/17 [Last Taken 01/19/17] Sertraline HCl [Zoloft 50mg (*)] 50 mg PO DAILY 01/19/17 [Last Taken 01/19/17] Discharge Medications: Refer to the Discharge Home Medication list for PRN reason. - Orders Services needed: Home Care, Registered Nurse, Physical Therapy, Occupational Therapy, Speech Language Pathologist Home Care Face to Face: I certify that this patient was under my care and that I had the required [id number] encounter meeting the encounter requirements on the discharge day. My findings support the fact that the patient is homebound as defined in CMS Chapter 7 Medicare Benefits Manual 30.1.1, The condition of the patient is such that there exists a normal inability to leave home and consequently, leaving home would require a considerable and taxing effort. Diet Recommendation: no restrictions on diet Diet Texture: Regular Texture Diet, [place] Thick Liquids, Meds Whole in Puree - Follow Up Care Current Providers and Referrals: Ron Ford DO [Primary Care Provider] - As per Instructions
[2017-01-21 11:37] LABS: RESPPCR RESULT SEE COMMENTS
--- NOTE | 2017-01-21 21:35 | GDS ---
[f rep st] DISCHARGE SUMMARY DISCHARGE DIAGNOSES: Include: 1. Acute weakness, thought secondary to underlying viral syndrome. 2. Acute leukocytosis, presumed secondary to viral upper respiratory infection. 3. Acute upper respiratory infection. Negative for influenza, potentially other viral pathogen. 4. History of West Nile virus, with flaccid paralysis and remnant dysarthria, ataxia, and double vi rosy. 5. Non-Hodgkin's lymphoma, on chemotherapy. HISTORY OF PRESENT ILLNESS: A 71-year-old male, with a hospitalization 2014 for West Nile virus eloina ding to flaccid paralysis, and remnant neurologic deficits. The patient presents with acute worseni ng of his chronic neurologic complaints. For details of patient's initial presentation, please see the history and physical dated 01/19/2017. CONSULTATIVE SERVICES: None. PROCEDURES: On 01/19/2017, patient had a noncontrast CT of the head, which was negative for any acu te intracranial abnormality. On 01/19/2017, patient had a PA and lateral chest x-ray which was negative for any acute infiltrate or edema. HOSPITAL COURSE: By issue: 1. Acute weakness. The patient presented with worsening of his baseline dysarthria, ataxia, and do uble vision. The rest of his neurologic exam was stable. CT imaging of the head was negative at ad mission. Suspected that this was a marker of a brewing acute illness. We aggressively fluid resusc itated the patient, and waited for return of blood cultures and other infectious workup, which remai n negative. The patient responded very well in 48 hours to supportive care alone, and reports being at his baseline at the time of the disposition. He will continue to have outpatient nursing PT/OT for long-term management of his neurologic deficits related to his West Nile virus. 2. Acute leukocytosis. Patient presented with elevation of his white count, which normalized with supportive treatment and fluid resuscitation alone. His influenza remain negative, as well as blood cultures drawn at admission. Respiratory viral panel is pending at the time of his discharge. 3. Suspected viral upper respiratory infection. The patient did have a runny nose, some sore throa t, and nonproductive cough consistent with a URI, suspected to be viral. Influenza is negative. We have sent a respiratory viral panel, which is pending at the time of the patient's disposition. DISCHARGE MEDICATIONS: Please reference the med reconciliation printed on 01/21/2017. PENDING STUDIES: At the time of this dictation include blood cultures drawn 01/19/2017, as well as a respiratory viral panel sent 01/20/2017. FOLLOWUP APPOINTMENTS: For this patient include: 1. With his outpatient neurologist for long-term management of his West Nile virus complications. 2. With Cardiology for evaluation and monitoring of his chronic bradycardia. I spent greater than 30 minutes in the planning and coordination of this discharge. /[id number]/MODL
== END 2017-01-21 13:00 | disposition home health service (06) | DRG 153 ==
LOC: F3E 13:10
PROVIDERS: ADMIT Hospitalist; ATTEND Hospitalist
DX: J06.9 Acute upper respiratory infection, unspecified (principal); B34.9 Viral infection, unspecified; H53.2 Diplopia; R47.1 Dysarthria and anarthria; R13.10 Dysphagia, unspecified; R26.81 Unsteadiness on feet; B94.1 Sequelae of viral encephalitis; C85.90 Non-Hodgkin lymphoma, unspecified, unspecified site; I10 Essential (primary) hypertension; M10.9 Gout, unspecified; E78.5 Hyperlipidemia, unspecified; R00.1 Bradycardia, unspecified; Z85.46 Personal history of malignant neoplasm of prostate
CPT/HCPCS: 82947-QW; 92610-GN; 97116-GP; 97163-GP; 97530-GP; G8978-GP-CM; G8979-GP-CJ; G8980-GP-CK; G8996-GN-CL; G8997-GN-CL; J1650

== ENCOUNTER 2017-03-16 18:35 | Emergency (ER) | payer OTHER ==
--- NOTE | 2017-03-16 18:59 | EDPHY ---
H & P Stated Complaint: dizziness started this am-no pain--started hctz sat--has west nile HPI/ROS: CHIEF COMPLAINT: Dizzy, off balance HISTORY OF PRESENT ILLNESS: Mr. 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 He presents with his today concerned about gait instability. He tells me that he feels as if he is going to fall over, as if he is drunk. He uses a walker to get about at home and is otherwise wheelchair-bound. His tells me that he requires assistance when using his walker. Over the last few weeks he has required more assistance than usual. He denies headache, new visual changes, change in speech, change in hearing, new weakness, or new numbness. He does not feel confused. He had an upper respiratory infection a few weeks ago but has recovered from that. He has not had recent fever, vomiting, diarrhea, or blood in his stool. He does not feel lightheaded or as if he is going to faint. He does not describe a spinning sensation. He was started on hydrochlorothiazide for hypertension 4 days ago. REVIEW OF SYSTEMS: A ten point review of systems was performed and is negative with the exception of the items mentioned in the HPI. Source: Patient, Family, Old records Exam Limitations: No limitations - Personal History Current Tetanus/Diphtheria Vaccine: Unsure Current Tetanus Diphtheria and Acellular Pertussis (TDAP): Unsure Tetanus Vaccine Date: 2007 - Medical/Surgical History Hx Asthma: No Hx Chronic Respiratory Disease: No Hx Diabetes: No Hx Cardiac Disease: No Hx Renal Disease: No Hx Cirrhosis: No Hx Alcoholism: No Hx HIV/AIDS: No Hx Splenectomy or Spleen Trauma: No Other PMH: HTN,. prostate CA with radiation. Non-hodgkins lymphoma with current chemo. Gout. hyperlipidemia. right BBB; bradycardia. wisdom teeth extraction. west nile 2014 with residual neurologic deficits - Social History Smoking Status: Never smoked Alcohol Use: None Drug Use: None Additional Social History: He has 24 hour nursing care. He lives with his . She is his medical decision maker. His primary care provider is Moisés Shi. No tobacco or alcohol use. - Physical Exam Exam: General Appearance: Alert. Vital signs reviewed. Pressure 171/86. Eyes: Pupils equal and round, no conjunctival injection, no discharge. Anicteric. ENT, Mouth: Mucous membranes are moist, no oropharyngeal erythema or edema. Neck: No lymphadenopathy, supple. Respiratory: Lungs are clear to auscultation; no wheezes, rales, or rhonchi. Cardiovascular: Bradycardic. No murmur, rub, or gallop. Gastrointestinal: Abdomen is soft and nontender, no masses or organomegaly, bowel sounds normal. Skin: Warm and dry, no rashes on exposed skin, normal color. Back: Nontender to palpation over the thoracolumbar spine. No CVAT. Extremities: No lower extremity edema, no calf tenderness or swelling. Neurological: Alert and oriented. Speech is dysarthric. Moving all four extremities easily and equally. Cranial nerves II through XII are examined and are intact (visual acuity not tested). Strength is 5 over 5 bilaterally with testing of all major motor groups. Sensation is intact to light touch over all 4 extremities. Dysmetria with [id number] testing. Psychiatric: Normal affect. Constitutional: Initial Vital Signs Temperature (C) 37.0 C 03/16/17 18:38 Heart Rate 54 L 03/16/17 18:38 Respiratory Rate 16 03/16/17 18:38 Blood Pressure 171/86 H 03/16/17 18:38 O2 Sat (%) 97 03/16/17 18:38 O2 Delivery Mode Room Air Allergies/Adverse Reactions: diphenhydramine HCl [From Benadryl] Allergy (Verified 01/19/17 10:22) INTOLERANCE fentanyl Allergy (Verified 01/19/17 10:22) INTOLERANCE hydromorphone HCl [From Dilaudid] Allergy (Verified 01/19/17 10:22) INTOLERANCE oxycodone Allergy (Verified 01/19/17 10:22) INTOLERANCE pseudoephedrine HCl [From Sudafed] Allergy (Verified 01/19/17 10:22) INTOLERANCE tramadol Allergy (Verified 01/19/17 10:22) INTOLERANCE Home Medications: Medication Instructions Recorded Ibrutinib [Imbruvica] 420 mg PO DAILY 08/30/15 Allopurinol [Allopurinol 100 MG 100 mg PO DAILY #0 tab 10/04/15 (*)] Atorvastatin Calcium [Lipitor 20 20 mg PO HS #0 tab 10/04/15 mg (*)] Aspirin [Aspirin 81mg (*)] 81 mg PO DAILY 04/04/16 Docusate Sodium [Colace 100 MG (*)] 100 mg PO BID 01/19/17 Famotidine [Pepcid 20 MG (*)] 20 mg PO BID 01/19/17 Herbals/Supplements -Info Only 1 ea PO DAILY 01/19/17 Lidocaine 5% [Lidoderm 5% Patch 1 ea TD HS 01/19/17 (*)] Losartan Potassium [Cozaar] 100 mg PO DAILY 01/19/17 Sertraline HCl [Zoloft 50mg (*)] 50 mg PO DAILY 01/19/17 Medical Decision Making - Diagnostics Imaging Results: CT images viewed by me in PACS. ED Course/Re-evaluation: This patient is a 71 year old male worried about worsening gait instability. Labs unremarkable. CT scan read by Dr. Ding]. Result: No acute findings. An attempt to ambulate was made. He requires significant assistance even with a walker. His family and his home care nurse tell me that his gait is worse than it has been in the past. It is unclear whether or not this is an acute change today or whether it has been a gradual change. 22:09 Reassessed patient. Discussed negative CT scan result. No intracranial hemorrhage. Patient is tired and would like to go home. states he has been stressed regarding radiation for prostate cancer. Plan to order MRI to assess for stroke. He has agreed to undergo MRI this evening. MRI reported to me at [address] Garza. There is no evidence of an acute strokel, meningitis, hydrocephalus. The MRI shows microvascular ischemic changes vs remnants of West Nile. Results were relayed to the patient, his , and his nurse. They are all in agreement that he should return home. He has been offered hospitalization for continued assessment of his gait and physical therapy as warranted. They understand that the etiology of his worsening gait instability has not been discovered. They are comfortable watching and waiting. They have been advised that if he continues with gait instability that is different from how it has been in the past he should be re- evaluated on Saturday. If anything worsens before then he should be re-evaluated in the emergency department. Differential Diagnosis: I continued considered a differential diagnosis that includes but is not limited to hemorrhagic stroke, ischemic stroke, sequelae of West Nile, infection such as urinary tract infection, NPH. - Data Points Laboratory Results: Laboratory Results 03/16/17 19:35 03/16/17 19:35 Departure - Departure Disposition: Home, Routine, Self-Care Clinical Impression: Gait instability Condition: Good Instructions: Dizziness (ED) Additional Instructions: It is not clear to me what is causing your walking to be worse. If anything changes for the worse over the weekend you should return to the emergency department for another evaluation. This would include headache, more trouble walking, fever, new numbness or weakness. Referrals: Moisés Shi MD [Primary Care Provider] - As per Instructions
[2017-03-16 19:41] LABS: ADD DIFF? NO; ADD MORPH? NO; ADD SCAN? NO; ATYPICAL LYMPHOCYTE FLAG 0 (0-99); FRAGMENT RBC FLAG 0 (0-99); HEMOGLOBIN 14.6 g/dL (13.7-17.5); LEFT SHIFT FLG 0 (0-99); LIPEMIA HEMOLYSIS FLAG 90 (0-99); MEAN CELL HEMOGLOBIN 28.9 pg (27.9-34.1); MEAN CELL VOLUME 85.1 fL (81.5-99.8); MEAN PLATELET VOLUME 10.6 fL (8.7-11.7); PLATELET CLUMPS FLAG 0 (0-99); PLATELET COUNT 173 10^3/uL (150-400); RED BLOOD CELL COUNT 5.05 10^6/uL (4.40-6.38); RED CELL DISTRIBUTION WIDTH 13.2 % (11.5-15.2)
[2017-03-16 19:58] LABS: ANION GAP 8 mEq/L (8-16); CALCIUM 9.3 mg/dL (8.5-10.4); CARBON DIOXIDE 28 mEq/l (22-31); CHLORIDE 102 mEq/L (97-110); CREATININE 0.7 mg/dL (0.7-1.3); GLOMERULAR FILTRATION RATE > 60; GLUCOSE 80 mg/dL (70-100); POTASSIUM 3.7 mEq/L (3.5-5.2); SODIUM 138 mEq/L (134-144)
[2017-03-16] MEDS ORDERED: GADOBUTROL 10 ML VIAL IVP ONE (23:39)
[2017-03-17 01:09] VITALS: BP 143/72; PULSE 52; RESP 16; TEMP 97.9; O2SAT 92
== END 2017-03-17 01:08 | disposition home or self-care (01) ==
DX: R26.9 Unspecified abnormalities of gait and mobility (principal); I10 Essential (primary) hypertension; Z79.82 Long term (current) use of aspirin; Z85.46 Personal history of malignant neoplasm of prostate; Z85.72 Personal history of non-Hodgkin lymphomas
CPT/HCPCS: 70450; 70553; 99285; A9585

== ENCOUNTER 2017-08-29 07:16 | Observation (INO) | payer OTHER ==
[2017-08-29] MEDS ORDERED: diphenhydrAMINE 25 MG CAP PO ONE (07:20)
[2017-08-29] MEDS ORDERED: BACITRACIN IRRIGATION/NS 50,000 UNITS/1,000 ML BTL IRR ONE (07:20)
[2017-08-29] MEDS ORDERED: ceFAZolin 2 GM/SWFI 2 GM/20 ML SYR IVP ONE (07:20)
[2017-08-29] MEDS ORDERED: DIAZEPAM 5 MG TAB PO ONE (07:20)
[2017-08-29] MEDS ORDERED: NS 1,000 ML IV ONE (07:20)
--- NOTE | 2017-08-29 07:41 | CPEKG ---
Heart Rate: 41 RR Interval: 1463 P-R Interval: 228 QRSD Interval: 100 QT Interval: 500 QTC Interval: 413 P Vendor: 32 QRS Vendor: 260 T Wave Vendor: 7 EKG Severity - ABNORMAL ECG - EKG Impression: SINUS BRADYCARDIA EKG Impression: LEFT ANTERIOR FASCICULAR BLOCK EKG Impression: ST DEPRESSION, CONSIDER ISCHEMIA, DIFFUSE LDS EKG Impression: UNCHANGED IN COMPARISON TO PRIOR Electronically Signed By: Bertram Toussaint 29-Aug-2017 10:58:50
[2017-08-29] MEDS ORDERED: ceFAZolin 2 GM/DEXTROSE 100 ML IV ONE (07:45)
[2017-08-29 08:07] LABS: % IMMATURE GRANULYOCYTES 0.2 % (0.0-1.1); ABSOLUTE IMMATURE GRANULOCYTES 0.01 10^3/uL (0.00-0.10); ADD DIFF? NO; ADD MORPH? NO; ADD SCAN? NO; ATYPICAL LYMPHOCYTE FLAG 0 (0-99); FRAGMENT RBC FLAG 0 (0-99); HEMOGLOBIN 15.1 g/dL (13.7-17.5); LEFT SHIFT FLG 0 (0-99); LIPEMIA HEMOLYSIS FLAG 90 (0-99); MEAN CELL HEMOGLOBIN 29.5 pg (27.9-34.1); MEAN CELL HEMOGLOBIN CONCENTR. 34.3 g/dL (32.4-36.7); MEAN CELL VOLUME 86.1 fL (81.5-99.8); MEAN PLATELET VOLUME 10.5 fL (8.7-11.7); PLATELET CLUMPS FLAG 10 (0-99); PLATELET COUNT 155 10^3/uL (150-400); RED BLOOD CELL COUNT 5.11 10^6/uL (4.40-6.38); RED CELL DISTRIBUTION WIDTH 13.2 % (11.5-15.2)
[2017-08-29 08:15] LABS: INR 1.03 (0.83-1.16); PROTIME(PATIENT) 13.4 SEC (12.0-15.0)
[2017-08-29 08:19] LABS: ANION GAP 9 mEq/L (8-16); CALCIUM 9.4 mg/dL (8.5-10.4); CARBON DIOXIDE 30 mEq/l (22-31); CHLORIDE 102 mEq/L (97-110); CREATININE 0.7 mg/dL (0.7-1.3); GLOMERULAR FILTRATION RATE > 60; GLUCOSE 84 mg/dL (70-100); POTASSIUM 3.7 mEq/L (3.5-5.2); SODIUM 141 mEq/L (134-144)
[2017-08-29] MEDS ORDERED: LIDOCAINE 1% 300 MG/30 ML SDV ONE (08:30)
[2017-08-29] MEDS ORDERED: BUPIVACAINE 0.5% 30 ML SDV ONE (08:31)
[2017-08-29] MEDS ORDERED: fentaNYL 100 MCG/2 ML INJ ONE (08:31)
[2017-08-29] MEDS ORDERED: LIDO/EPI 1% **for epidural** 30 ML SDV ONE (08:31)
[2017-08-29] MEDS ORDERED: MIDAZOLAM 2 MG/2 ML VIAL ONE (08:31)
--- NOTE | 2017-08-29 08:55 | PDHPUP ---
History & Physical Update H&P update statement: This history and physical update is based on an assessment of the patient which was completed after admission or registration (within 24 hours), but prior to the surgery/procedure. H&P update: H&P reviewed & patient examined, no change in patient's condition since H&P completed
--- NOTE | 2017-08-29 08:56 | PDPROPOC ---
Sedation Plan of Care Sedation Plan of Care: mental status noted, patient educated of risks, benefits , alternatives, patient can tolerate sedation ASA Classification: ASA 3 Planned drugs: midazolam Mallampati Score: Class 3 Mallampati Reference Image: Patient passed 3-3-2 rule?: Yes
--- NOTE | 2017-08-29 12:02 | CPEKG ---
Heart Rate: 60 RR Interval: 1000 P-R Interval: 172 QRSD Interval: 100 QT Interval: 480 QTC Interval: 480 QRS [place]: 253 T Wave [place]: 5 EKG Severity - ABNORMAL ECG - EKG Impression: ATRIAL-PACED RHYTHM EKG Impression: LEFT ANTERIOR FASCICULAR BLOCK EKG Impression: ST DEPRESSION, CONSIDER ISCHEMIA, ANT-LAT LDS EKG Impression: BORDERLINE PROLONGED QT INTERVAL EKG Impression: PACING SPIKES ARE NEWLY NOTED IN THIS ECG Electronically Signed By: Bertram Toussaint 30-Aug-2017 10:23:06
[2017-08-29] MEDS ORDERED: LISINOPRIL 10 MG TAB PO ONE (12:15)
[2017-08-29 13:52] VITALS: PULSE 60
[2017-08-29] MEDS ORDERED: NAPROXEN SODIUM 220 MG TAB PO ONE (14:15)
[2017-08-29] MEDS: DOCUSATE SODIUM 100 MG CAP PO SCH (20:15)
[2017-08-29] MEDS ORDERED: NAPROXEN SODIUM 220 MG TAB PO SCH (21:00)
[2017-08-29] MEDS ORDERED: ATORVASTATIN CALCIUM 20 MG TAB PO SCH (21:00)
[2017-08-30 05:05] LABS: % IMMATURE GRANULYOCYTES 0.2 % (0.0-1.1); ABSOLUTE IMMATURE GRANULOCYTES 0.01 10^3/uL (0.00-0.10); ADD DIFF? NO; ADD MORPH? NO; ADD SCAN? NO; ATYPICAL LYMPHOCYTE FLAG 0 (0-99); FRAGMENT RBC FLAG 10 (0-99); HEMATOCRIT 38.3 % (40.0-51.0); HEMOGLOBIN 13.1 g/dL (13.7-17.5); LEFT SHIFT FLG 0 (0-99); LIPEMIA HEMOLYSIS FLAG 90 (0-99); MEAN CELL HEMOGLOBIN 29.5 pg (27.9-34.1); MEAN CELL HEMOGLOBIN CONCENTR. 34.2 g/dL (32.4-36.7); MEAN CELL VOLUME 86.3 fL (81.5-99.8); MEAN PLATELET VOLUME 10.5 fL (8.7-11.7); PLATELET CLUMPS FLAG 0 (0-99); PLATELET COUNT 148 10^3/uL (150-400); RED BLOOD CELL COUNT 4.44 10^6/uL (4.40-6.38); RED CELL DISTRIBUTION WIDTH 13.2 % (11.5-15.2)
[2017-08-30 05:21] LABS: ANION GAP 7 mEq/L (8-16); CALCIUM 9.1 mg/dL (8.5-10.4); CARBON DIOXIDE 32 mEq/l (22-31); CHLORIDE 104 mEq/L (97-110); CREATININE 0.7 mg/dL (0.7-1.3); GLOMERULAR FILTRATION RATE > 60; GLUCOSE 83 mg/dL (70-100); POTASSIUM 4.1 mEq/L (3.5-5.2); SODIUM 143 mEq/L (134-144)
[2017-08-30 07:17] VITALS: BP 131/83; RESP 12; TEMP 97.9; O2SAT 94
[2017-08-30] MEDS: DOCUSATE SODIUM 100 MG CAP PO SCH (08:20)
--- NOTE | 2017-08-30 08:48 | CPEKG ---
Heart Rate: 60 RR Interval: 1000 P-R Interval: 188 QRSD Interval: 116 QT Interval: 468 QTC Interval: 468 QRS [place]: -92 T Wave [place]: 12 EKG Severity - ABNORMAL ECG - EKG Impression: ATRIAL-PACED RHYTHM EKG Impression: INCOMPLETE RBBB AND LAFB Electronically Signed By: Bertram Toussaint 30-Aug-2017 10:23:14
[2017-08-30] MEDS ORDERED: Herbals/Supplements -Info Only PO SCH (09:00)
[2017-08-30] MEDS ORDERED: CHOLECALCIFEROL VIT D3 2,000 UNITS TAB/CAP PO SCH (09:00)
[2017-08-30] MEDS ORDERED: IBRUTINIB 420 MG PO SCH (09:00)
[2017-08-30] MEDS ORDERED: ASCORBIC ACID 500 MG TAB PO SCH (09:00)
[2017-08-30] MEDS ORDERED: CYANO/VITAMIN B12 1000 MCG TAB PO SCH (09:00)
[2017-08-30] MEDS ORDERED: SERTRALINE HCL 100 MG TAB PO SCH (09:00)
[2017-08-30] MEDS ORDERED: ASPIRIN 81 MG CHEWABLE TAB PO SCH (09:00)
--- NOTE | 2017-08-30 09:56 | ASMTCASEMG ---
Living Arrangements What is your living Answers: With Spouse arrangement? Who do you live with? Type Of Residence What kind of residence do Answers: House you live in? Discharge Plan Comments Coordination Status Comments Notes: Pt is a 71 y/o man that is being discharged today w/ supportive . CM met w/ pt for dispo planning. Pt reports that he does not have any needs at this time. CM spoke w/ on the phone regarding d/c plans. 's only request is to have someone help pt get into their SUV. She reports that she has 24hr care at home. CM available for changes. Date Signed: 08/30/2017 09:55 AM Electronically Signed By:YUDI Payne
--- NOTE | 2017-08-30 10:33 | GDS ---
[f rep st] DISCHARGE SUMMARY ADMISSION DIAGNOSES: 1. Diagnosis symptomatic bradycardia. 2. Right bundle branch block. 3. Known history of West Nile encephalitis. 4. Hypertension. 5. Hyperlipidemia. 6. History of non-Hodgkin's lymphoma. 7. History of prostate cancer. DISCHARGE DIAGNOSES: 1. Symptomatic bradycardia. 2. Status post permanent pacemaker implantation, dual chamber, with [employer] device with [employer] le ads. 3. History of West Nile encephalitis. 4. Hypertension. 5. Hyperlipidemia. 6. History of non-Hodgkin's lymphoma. 7. History of prostate cancer. PROCEDURES PERFORMED DURING HOSPITALIZATION: 1. Electrocardiogram. 2. Dual chamber permanent pacemaker implantation. [employer] device with atrial and ventricular leads . 3. Chest x-ray. BRIEF HISTORY: Please see H and P. The patient is a 71-year-old male, reporting increased weakness and fatigue, noted average heart rate 40-45 beats per minute, reported some lightheadedness with posi tional changes, and also electrocardiogram right bundle branch block. The patient was reviewed by Dr Neha Toussaint at the office, and felt to be appropriate candidate to undergo pacemaker implantation to hel p increase average heart rate. The procedure was set up at the [facility] electrophysiology service s. HOSPITAL COURSE: The patient was admitted through CVC, prepped for procedure, and taken to the elect rophysiology suite. There, Dr. Martinez implanted a [place] [employer] permanent pacemaker with [employer]uc atrial and ventricular leads. The patient was noted to have a mild hematoma at the insertion site during th e procedure, which manual pressure was held for 10-15 minutes, which reduced hematoma. No other comp lications. The patient was transferred back to the CVC, and ultimately to the PCU for overnight obse rvation. In the PCU, the patient has been remained AV paced throughout the evening, no malignant arr hythmias or pauses noted. He denies any chest pain or pressure. Reports mild pain at insertion site , but has refused any pain medication. Denies any chest pain or shortness of breath. Reports no lig htheadedness, palpitations, near-syncope, or syncopal events. PHYSICAL EXAMINATION: GENERAL APPEARANCE: Thin, elderly male. He is alert, oriented to person, katerin ce, time, and situation. Appears to be under no acute distress. CURRENT VITAL SIGNS: Blood pressur e of 131/83, heart rate of 60, respirations 12, saturating 94% on room air, temperature 36.6 degrees Celsius. HEENT: Head is normocephalic. Lips and tongue are pink and moist with no signs of cyanosi s. Conjunctivae pink. NECK: Trachea is midline, +2 carotid pulses bilateral. No auscultated bruit s. No jugular vein distention. RESPIRATORY: Lungs diminished in the bases bilateral, but no rhonch i rales or wheezes, no accessory muscle use. No intercostal muscle retraction noted. CARDIAC: Regu lar rate, regular rhythm, S1, S2. No S3, S4, gallops, rubs, or murmurs noted. ABDOMEN: Soft, nonte nder, bowel sounds x4 quadrants. No organomegaly. No palpable masses. SKIN: Power, warm, dry. No cyanosis, no clubbing, no peripheral edema. VASCULAR: +2 carotids bilateral, +2 radials bilateral, +1 dorsal pedal and posterior tibial pulses bilateral. PACEMAKER INSERTION SITE: Left anterior ches t just distal lateral to the clavicle. Incision intact with Steri-Strips. Palm size hematoma noted around the incision site, nonpainful, mild ecchymosis. No redness, swelling, drainage noted. LABORATORY STUDIES: Drawn today show WBC of 6.58, hemoglobin 13.1, hematocrit of 38.3, platelet coun t of 148, sodium 143, potassium 4.1, chloride 104, CO2 32, BUN 14, creatinine 0.7, glucose 83, calciu m 9.1. EP study and pacemaker insertion sites as above. This morning's electrocardiogram showing an atrial paced rhythm with a right bundle branch block. Chest x-ray done this morning, reviewed by Dr. Martinez, shows no acute cardiopulmonary process, no delay ed pneumothorax. Device check done by [employer] rep this morning showing device functioning within normal limits. DISCHARGE DISPOSITION: The patient will be discharged home with , to his regular home health car e. He is under activity restrictions of not lifting left arm higher than shoulder height for the nex t week, and attempting not to lift more than 10 pounds with the left arm for the next week. He has b een asked to do no significant strenuous activity for the next 2 weeks. DISCHARGE MEDICATIONS: Please see discharge med reconciliation sheet. DISCHARGE INSTRUCTIONS: Post permanent pacemaker implantation discharge instructions went over with the patient and his , including monitoring for signs of infection, activity restrictions, and fol lowup. The patient has a scheduled device and wound check at our office next week, and he will follo w up with Dr. Martinez in 1 month's time. At the time of discharge, both patient and verbalized und erstanding of all instructions, and have no questions. They have been told that if any problems or c oncerns post discharge, they are to call our office or return to the hospital. Total time spent on discharge greater than 30 minutes. /[id number]/MODL
--- NOTE | 2017-08-30 12:36 | EPPROC ---
Electrophysiology Procedure Note: PROCEDURE PERFORMED: Implantation of an A/V Pacemaker Fluoroscopy INDICATION: This is a 71 yr old with symptomatic bradycardia with heart rates in the 30s and 40s. Hence it was decided to implant a dual chamber pacemaker. PROCEDURE NOTE: Patient presented to the cardiac catheterization laboratory in a fasting, post absorptive state. Cardiac laborer syrup machine nurse administered moderate sedation. The left infraclavicular area was prepped and draped in the usual sterile fashion. Lidocaine plus bupivacaine was used for local anesthesia. Left subclavian venography was performed by injection of iodinated contrast into the left antecubital vein. This was done to assure patency of the vein and also to assess for any anatomical aberrations. Using a combination of blunt and sharp dissection and electrocautery, the dissection was carried down to the prepectoral fascia. All bleeding was controlled with electrocautery. Fluoroscopy was utilized during the entire procedure for venous access and placement of the leads. Using the usual technique, left celphalic vein was accessed and a glidewire was placed. Through this initially a 9F and later a 7F sheath was passed. Placement of the guidewires into the venous system was confirmed by low- pressure blood return and also by visualizing the guidewires advancing into the inferior vena cava. A purse string suture was applied around the guidewires. An active fixation ventricular lead was advanced into the right ventricular apex and screwed in place. An active fixation atrial lead was advanced into the right atrial appendage and screwed in place. The peel away sheaths were removed. Pacing thresholds, sensing parameters and lead impedances were measured. There was no diaphragmatic stimulation at maximum output. The leads were sutured to the prepectoral fascia with 3 nonabsorbable sutures each. The pocket was created and it was flushed using antibiotic solution. It was inspected for any bleeding. The leads were attached to the pacemaker securely. The pacemaker was inserted into the pocket and secured in place with a nonabsorbable suture. Fluoroscopy was performed in GOODWIN and MALAYSIAN planes to verify right-sided placement of the leads. Also fluoroscopy of the pacemaker pocket was performed. The pacemaker pocket was closed in 3 layers with absorbable vicryl sutures. Steristrips were placed. Appropriate dressing was applied. The patient left the cardiac catheterization laboratory in stable condition. Serial Numbers: Device: St Phuc Assurity MRI SN [id number] Atrial Lead: St Phuc Tendril SN [id number] Ventricular Lead: St Phuc Tendril SN [id number] Stimulation Thresholds & Impedance Measurements: Atrial Lead 2.4mV, 1.25@0.5ms, 430Ohms Ventricular Lead 7.5mV, 0.5@0.5ms, 590Ohms Ralph Pacing Parameters Pacing mode: DDD Lower rate: 60 Upper tracking rate: 130 Upper sensor rate: 130 Patient Problems: Problems Problem Status Onset Altered mental status Acute Colon perforation Acute Fever Acute Hypogammaglobulinemia, acquired Acute 06/28/15 Malnutrition following gastrointestinal surgery Acute PEG (percutaneous endoscopic gastrostomy) status Acute Peritonitis Acute Post viral debility Acute Weakness 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
== END 2017-08-30 11:08 | disposition home or self-care (01) ==
LOC: FCATH 07:16 → F2W 11:02
PROVIDERS: ADMIT Internal Medicine Cardiovascular Disease; ATTEND Internal Medicine Cardiovascular Disease
DX: I45.10 Unspecified right bundle-branch block (principal); R00.1 Bradycardia, unspecified; I10 Essential (primary) hypertension; E78.5 Hyperlipidemia, unspecified; Z85.72 Personal history of non-Hodgkin lymphomas; Z85.46 Personal history of malignant neoplasm of prostate; Z86.19 Personal history of other infectious and parasitic diseases
CPT/HCPCS: C1769; C1785; C1898; G0378; J0690; J1644; J2250; J3010

== ENCOUNTER 2017-08-30 16:34 | Observation (INO) | payer OTHER ==
--- NOTE | 2017-08-30 16:58 | CPEKG ---
Heart Rate: 60 RR Interval: 1000 P-R Interval: 216 QRSD Interval: 178 QT Interval: 456 QTC Interval: 456 QRS [place]: -94 T Wave [place]: 21 EKG Severity - ABNORMAL ECG - EKG Impression: ATRIAL-PACED RHYTHM EKG Impression: RIGHT BUNDLE BRANCH BLOCK Electronically Signed By: Ezio Phoenix 31-Aug-2017 00:06:33
--- NOTE | 2017-08-30 16:58 | CPEKG ---
Heart Rate: 60 RR Interval: 1000 P-R Interval: 216 QRSD Interval: 178 QT Interval: 456 QTC Interval: 456 QRS [place]: -94 T Wave [place]: 21 EKG Severity - ABNORMAL ECG - EKG Impression: ATRIAL-PACED RHYTHM EKG Impression: RIGHT BUNDLE BRANCH BLOCK Electronically Signed By: Ezio Phoenix 31-Aug-2017 00:06:33
[2017-08-30] MEDS ORDERED: NS 500 ML IV ONE ×2 (17:03)
[2017-08-30 17:12] LABS: PLATELET COUNT 171 10^3/uL (150-400)
[2017-08-30 17:22] LABS: INR 1.08 (0.83-1.16); PROTIME(PATIENT) 13.9 SEC (12.0-15.0)
[2017-08-30 17:29] LABS: CREATINE KINASE 90 IU/L (0-224)
--- NOTE | 2017-08-30 17:31 | EDPHY ---
H & P Time Seen by Provider: 08/30/17 16:58 HPI/ROS: HPI Lightheaded, confusion. 71-year-old male by ambulance from the office of his cutting room supervisor Dr. Vail. This patient had a pacemaker implantation yesterday. He was admitted to the hospital overnight by Dr. Vail after this procedure. He had some bleeding from the pacemaker site this morning which seemed to be oozing but slowing. He was discharged home. He then had further bleeding this afternoon and was returned to Dr. Kemp' office by his and home health care nurse. Dr. Vail placed a pressure dressing and hemostasis was achieved. The patient was then leaving Dr. Vail office when he suddenly became listless in his wheelchair it would not respond to questioning. This lasted about 5-10 minutes before he cleared to his baseline mental status. Currently he denies any complaints. ROS: Constitutional: No fever, no chills. As above. Eyes: No discharge. No changes in vision. ENT: No sore throat. No nasal congestion or rhinorrhea. Respiratory: No cough. No shortness of breath. Cardiac: No chest pain, no palpitations. Gastrointestinal: No abdominal pain, no vomiting, no diarrhea. Genitourinary: No hematuria. No dysuria or increased frequency with urination. Musculoskeletal: No back pain. No neck pain. No myalgias or arthralgias. Skin: No rashes. Neurological: No headache. No focal weakness or altered sensation. 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 Bradycardia, pacemaker. As above. Social history: Nonsmoker. Lives with his . Has a home health care nurse. No alcohol. He gets around in a wheelchair mostly. With assistance he can use a walker at times. Physical Exam: General Appearance: Alert, no distress. This patient is responding to questions with yes and no answers but appropriately. This is his baseline according to his and nurse. This patient appears well-hydrated and well- nourished. Eyes: Pupils equal and round at 3-2 mm bilaterally, no pallor or injection. No lid edema, erythema or injection. ENT, Mouth: Mucous membranes are moist. The pharyngeal tissues are unremarkable. No edema or swelling. No asymmetry suggestive of abscess. No erythema or exudates. No tongue lacerations or abrasions. Respiratory: There are no retractions, lungs are clear to auscultation with good air movement bilaterally. Cardiovascular: Regular rate and rhythm. No murmur. Gastrointestinal: Abdomen is soft and nontender, no masses, bowel sounds normal. No focal tenderness at McBurney's point. No Moran sign. Neurological: Motor sensory function is grossly baseline. Cranial nerves are normal. Skin: Warm and dry, no rashes. Musculoskeletal: Neck is supple and nontender. Extremities are symmetrical. All joints range without pain or impingement. Psychiatric: No agitation. No depression. Database: EKG: EKG time is 4:53 p.m.: EKG shows an atrial paced rhythm with an under line right bundle branch block, ventricular rate of 60. No ST, T-wave changes indicative of acute ischemic or injury pattern. Interpreted by me. Imaging: CT scan of head without contrast: Atrophy, some white matter changes, old right cerebellar infarct. No acute pathology. Results were discussed staff radiologist Dr. Theron Francisco. Procedures: Emergency department course: IV placed. He was placed on a environmental monitoring specialist. Vital signs reviewed. He was started on IV normal saline with 500 cc to be given over the next hour. EKG obtained and reviewed by myself. He will be sent for CT imaging of his brain shortly. 6:30 p.m., spoke with Dr. Vail, cutting room supervisor, who saw this patient in our emergency department. He will consult further on the patient as needed through the hospitalist service. He agrees with plan for observation admission overnight. 6:45 p.m., patient re-evaluated. Resting comfortably at this time. Repeat neurologic Assessment is unchanged. Results of diagnostic studies discussed with patient and family. Plan for admission reviewed. All of their questions were answered. 7:05 p.m., spoke with on-call hospitalist. Case discussed in detail with him. Patient accepted for observation admission to telemetry. Differential Diagnosis: The differential diagnosis on this patient includes but is not limited to hypoglycemia, dehydration, CVA, arrhythmia, UT. This represents a partial list of diagnoses considered. These considerations are based on history, physical exam, past history, reassessment and diagnostic testing. Smoking Status: Never smoked Constitutional: Initial Vital Signs Temperature (C) 36.5 C 08/30/17 16:39 Heart Rate 76 08/30/17 16:39 Respiratory Rate 20 08/30/17 16:39 Blood Pressure 104/57 L 08/30/17 16:39 O2 Sat (%) 92 08/30/17 16:39 O2 Delivery Mode Room Air Allergies/Adverse Reactions: diphenhydramine HCl [From Benadryl] Allergy (Verified 08/30/17 16:36) INTOLERANCE fentanyl Allergy (Verified 08/30/17 16:36) INTOLERANCE hydromorphone HCl [From Dilaudid] Allergy (Verified 08/30/17 16:36) INTOLERANCE oxycodone Allergy (Verified 08/30/17 16:36) INTOLERANCE pseudoephedrine HCl [From Sudafed] Allergy (Verified 08/30/17 16:36) INTOLERANCE tramadol Allergy (Verified 08/30/17 16:36) INTOLERANCE Home Medications: Medication Instructions Recorded Ibrutinib [Imbruvica] 420 mg PO DAILY 08/30/15 Atorvastatin Calcium [Lipitor 20 20 mg PO HS #0 tab 10/04/15 mg (*)] Aspirin [Aspirin 81mg (*)] 81 mg PO DAILY 04/04/16 Docusate Sodium [Colace 100 MG (*)] 100 mg PO BID 01/19/17 Herbals/Supplements -Info Only 1 ea PO DAILY 01/19/17 Ascorbic Acid [Vitamin C 500 mg 500 mg PO DAILY 08/29/17 (*)] Cholecalciferol Vit D3 [Vitamin D3 2,000 units PO DAILY 08/29/17 2000 units tab (OTC)] Cyanocobalamin [Vitamin B12 (*)] 500 mcg PO DAILY 08/29/17 Naproxen Sodium [Aleve 220 MG (*)] 220 mg PO HS 08/29/17 Sertraline HCl [Zoloft 100mg (*)] 100 mg PO DAILY 08/29/17 Medical Decision Making - Diagnostics Imaging Results: Imaging Impressions Head CT 08/30/17 17:24 Impression: 1. Moderate cerebellar atrophy. 2. No acute hemorrhage, hydrocephalus, or mass effect. 3. Cerebrovascular atherosclerosis. 4. No definite acute infarct. 5. Moderate microvascular ischemic gliosis. 6. Old bilateral cerebellar infarcts. 7.Consider MRI of the brain without and with contrast enhancement, if there is continued clinical concern. Findings and recommendations discussed with Emergency Department physician, Ezio Phoenix MD at 18:34 hour, 08/30/2017. Final report concurs with initial preliminary interpretation. - Data Points Laboratory Results: Laboratory Results 08/30/17 16:55 08/30/17 16:55 08/30/17 08/30/17 08/30/17 16:55 16:55 16:55 WBC 9.19 10^3/uL 10^3/uL (3.80-9.50) RBC 4.57 10^6/uL 10^6/uL (4.40-6.38) Hgb 13.3 g/dL L g/dL (13.7-17.5) Hct 39.2 % L % (40.0-51.0) MCV 85.8 fL fL (81.5-99.8) MCH 29.1 pg pg (27.9-34.1) MCHC 33.9 g/dL g/dL (32.4-36.7) RDW 13.3 % % (11.5-15.2) Plt Count 171 10^3/uL 10^3/uL (150-400) MPV 10.5 fL fL (8.7-11.7) Neut % (Auto) 64.6 % % (39.3-74.2) Lymph % (Auto) 24.5 % % (15.0-45.0) Ector % (Auto) 9.7 % % (4.5-13.0) Eos % (Auto) 0.3 % L % (0.6-7.6) Baso % (Auto) 0.7 % % (0.3-1.7) Nucleat RBC Rel Count 0.0 % % (0.0-0.2) Absolute Neuts (auto) 5.94 10^3/uL 10^3/uL (1.70-6.50) Absolute Lymphs (auto) 2.25 10^3/uL 10^3/uL (1.00-3.00) Absolute Monos (auto) 0.89 10^3/uL H 10^3/uL (0.30-0.80) Absolute Eos (auto) 0.03 10^3/uL 10^3/uL (0.03-0.40) Absolute Basos (auto) 0.06 10^3/uL 10^3/uL (0.02-0.10) Absolute Nucleated RBC 0.00 10^3/uL 10^3/uL (0-0.01) Immature Gran % 0.2 % % (0.0-1.1) Immature Gran # 0.02 10^3/uL 10^3/uL (0.00-0.10) PT 13.9 SEC SEC (12.0-15.0) INR 1.08 (0.83-1.16) APTT 26.6 SEC SEC (23.0-38.0) Sodium 139 mEq/L mEq/L (134-144) Potassium 3.8 mEq/L mEq/L (3.5-5.2) Chloride 100 mEq/L mEq/L (97-110) Carbon Dioxide 30 mEq/l mEq/l (22-31) Anion Gap 9 mEq/L mEq/L (8-16) BUN 16 mg/dL mg/dL (7-23) Creatinine 0.7 mg/dL mg/dL (0.7-1.3) Estimated GFR > 60 Glucose 102 mg/dL H mg/dL (70-100) Calcium 9.3 mg/dL mg/dL (8.5-10.4) Creatine Kinase 90 IU/L IU/L (0-224) CK-MB (CK-2) Fraction 2.31 ng/mL ng/mL (0.00-3.19) Troponin I 0.014 ng/mL ng/mL (0.000-0.034) Medications Given: Discontinued Medications Sodium Chloride (Ns) 500 mls @ 1,000 mls/hr IV EDNOW ONE PRN Reason: Protocol Stop: 08/30/17 17:32 Last Admin: 08/30/17 17:22 Dose: 500 mls Departure - Departure Disposition: [facility] Acute Clinical Impression: Near syncope, Transient altered mental status Referrals: Moisés Shi MD [Primary Care Provider] - As per Instructions
[2017-08-30] MEDS ORDERED: ONDANSETRON 4 MG/2 ML VIAL IVP PRN ×2 (22:41)
[2017-08-30] MEDS ORDERED: ACETAMINOPHEN 325 MG TAB PO PRN ×2 (22:41)
[2017-08-31] MEDS: DOCUSATE SODIUM 100 MG CAP PO SCH ×4 (00:46→08:03)
[2017-08-31] MEDS: NS 1,000 ML IV SCH ×4 (00:47→11:50)
--- NOTE | 2017-08-31 01:51 | GHP ---
[f rep st] HISTORY AND PHYSICAL DATE OF ADMISSION: 08/30/2017 ROLLER MILL OPERATOR: Dr. Martinez. SOURCE: Patient able to provide some of the history. at bedside supplements details. EMR also reviewed. CHIEF COMPLAINT: Lightheadedness and presyncope. 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 Martinez's office this afternoon following a presyncopal episode. The patient is status post placement of a [place] pacer on 2016. He developed hematoma and was monitored overnight. He was discharged yesterday and has had subsequent followup with Dr. Martinez's office. Following the appointment, the patient appeared to be a little less responsive and had complaint of some lightheadedness. He was sent to the emergency department for further evaluation. and patient both endorse that his appetite have been significantly decreased and has not had significant amount of oral hydration. The patient denies any nausea, vomiting, diarrhea. No fevers, chills. Patient is complaining of soreness at the surgical site but otherwise no new focal deficits. He has chronic lower extremity weakness and is essentially wheelchair dependent, able to stand with significant assistance and unable to use walker at this time secondary to his postop status. REVIEW OF SYSTEMS: GENERAL: The patient denies any fevers, chills. SKIN: No new rashes, sores. Patient did have a little bit of oozing at the surgical site yesterday and today. The bandage was changed at Dr. Martinez's office. Has not soaked through this dressing. No rashes or sores. HEENT: Patient complains of dry mouth. No sore throat. No rhinorrhea. Patient with chronic double vision, but no acute changes from his baseline. No ocular pain. CARDIAC : Patient denies any chest pain except at surgical site. No palpitations. RESPIRATORY: Patient denies any cough, shortness of breath. GASTROINTESTINAL: Patient denies any nausea, vomiting, abdominal pain or diarrhea. : No dysuria or hematuria. MUSCULOSKELETAL: Baseline lower extremity weakness. No other joint complaints. NEURO: Baseline as noted above. No headache. No new weakness. PSYCH: No acute changes to mood. Remainder ROS negative except as noted above. ALLERGIES: Benadryl, fentanyl, Dilaudid, oxycodone, tramadol, pseudoephedrine. The patient developed significant altered mental status, hallucinations. HOME MEDICATIONS: Reviewed with the patient and his : 1. Sertraline 100 mg p.o. daily. 2. Naproxen 220 mg p.o. q.h.s. 3. Imbruvica 420 mg p.o. daily. 4. Docusate 100 mg p.o. b.i.d. 5. B12 500 mcg p.o. daily. 6. Vitamin D3 1000 units p.o. daily. 7. Lipitor 20 mg p.o. q.h.s. 8. Aspirin 81 mg p.o. daily. 9. Vitamin C 500 mg p.o. daily. PAST MEDICAL HISTORY: Significant for history of hypertension, hyperlipidemia, depression, prostate cancer, non-Hodgkin lymphoma. In 2014, patient had West Nile meningoencephalitis with subsequent development of residual affects of lower extremity weakness, ataxia, dysarthria. The patient more recently with symptomatic bradycardia, persistent right bundle branch block, status post pacer on 08/29/2017. Previous history of colon perforation and peritonitis. PAST SURGICAL HISTORY: Significant for pacer, tracheostomy, PEG, and exploratory laparotomy to repair colon perforation without need for colectomy. FAMILY HISTORY: Mother with hypertension. No family members with CVA or other medical issues. SOCIAL HISTORY: Patient is , lives with his . He has home health care nursing. No tobacco, drugs or alcohol use. He is primarily wheelchair dependent. Now postoperatively, he is not able to use his walker. Even at baseline, requires significant amount of assistance. CODE STATUS: Full. is MD MOORE. PHYSICAL EXAMINATION: VITAL SIGNS: Blood pressure 104/57, heart rate 76, respiratory rate 20, O2 saturation 92% on room air, temperature 36.5 on arrival to the ER. Current vital signs available: Blood pressure 127/65, heart rate 75 , respiratory rate 16, O2 saturation 93% on room air, temperature 37.1. GENERAL : No acute distress. Pleasant older adult male who is lying quietly in bed. at bedside. HEAD: Normocephalic, atraumatic. EYES: Extraocular muscles intact. Pupils equal, round, slightly constricted but reactive to light. No scleral icterus, conjunctival injection. ENT: Mucous membranes appear dry. No oropharyngeal erythema or exudates. NECK: Supple. Trachea midline. CV: Regular rate and rhythm. No murmurs, rubs or gallops appreciated. RESPIRATORY : Lungs clear to auscultation bilaterally. No wheezes, rales, or rhonchi. CHEST: Left anterior chest is bandaged. Limited evaluation. There is no active oozing or bleeding to the surgical site below the dressing. Deferred full evaluation to surgical site to Dr. Martinez tomorrow given recent oozing, which appears to have stopped. ABDOMEN: Positive bowel sounds. Soft, nontender to palpation. No rebound, guarding, or masses appreciated. : No Jimenez in place. No suprapubic tenderness to palpation. EXTREMITIES: Generalized weakness. Limited range of motion of the left arm due to surgical site. Otherwise, able to move distal extremities. Strength while lying in bed grossly normal. NEURO: Cranial nerves 2-12 intact symmetric , bilaterally. Patient is awake, alert and oriented x4. Some slurred speech and dysarthria noted. PSYCH: Without any anxiety. Responds appropriately to questions. Oriented x3. LABORATORY: WBC 9.19, H and H 13.3 and 39.2, MCV 85.8, platelet count is 171, neutrophils normal, no bandemia. PT is 13.9, INR 1.08, PTT 26.6. Sodium is 139 , potassium 3.8, chloride 100, CO2 is 30, anion gap 9, BUN 16, creatinine 0.7. GFR of greater than 60. Glucose 102, calcium 9.3. CK is 90, CK-MB 2.31, troponin 0.014. EKG, reviewed by myself: A paced rhythm with a right bundle branch block. CT head report reviewed, showing moderate cerebellar atrophy. No acute hemorrhage, hydrocephalus or mass-effect. Cerebrovascular atherosclerosis. No definite acute infarct. Moderate microvascular ischemic gliosis. Old bilateral cerebellar infarcts. ASSESSMENT AND PLAN: A pleasant 71-year-old gentleman with recent placement of a pacer for symptomatic bradycardia with history of right bundle branch block, who presents from cardiology office with a presyncopal episode. 1. Presyncope, most likely related to some hypovolemia. Patient and his endorse the patient has not had significant oral intake postoperatively and patient is complaining of feeling dehydrated. Symptoms appear to be positional. Initial blood pressure upon arrival was slightly low normal and has improved following IV fluids in the emergency department. We will plan to obtain orthostatics as possible given patient's physical limitations with standing. CT head was negative for any evidence of acute intracranial process. 2. Dehydration. Continue some gentle IV fluids overnight. 3. Anemia. Acute blood loss related to his recent pacer placement with hematoma and persistent oozing appears to now have stopped. We will continue to monitor CBC in the morning. The patient is complaining of pain. He has significant confusion with any kind of narcotic or sedative. Tylenol is available p.r.n. for pain. Discussed with the patient and his regarding concerns for additional bleeding with NSAIDs for now. They are amenable to hold off until patient could be recessed tomorrow with Dr. Martinez. 4. Status post pacer, postop day 2. 5. History of bradycardia, status post permanent pacer. Rate is paced in the 70s. 6. Right bundle branch block, stable. 7. Non-Hodgkin lymphoma. The patient will plan to resume Imbruvica if discharged tomorrow. Otherwise, will plan to bring from home. 8. Depression. Continue Zoloft. 9. Constipation. Continue Colace. 10. Hyperlipidemia. Continue statin. 11. History of West Nile with sequelae of lower extremity weakness, ataxia and dysarthria. At baseline. 12. Fluid, electrolyte, nutrition. IV fluids overnight. Electrolyte replacement p.r.n. Diet as at home. 13. Prophylaxis: SCDs. Holding anticoagulation in setting of recent bleeding at surgical site and hematoma. CODE STATUS: Full. is MD MOORE. DISPOSITION: Patient admitted to observation on PCU for cardiac monitoring. /[id number]/MODL MTDD
[2017-08-31 08:35] LABS: PLATELET COUNT 135 10^3/uL (150-400)
[2017-08-31] MEDS ORDERED: SERTRALINE HCL 100 MG TAB PO SCH ×4 (09:00→12:15)
[2017-08-31] MEDS ORDERED: ATORVASTATIN CALCIUM 20 MG TAB PO SCH ×2 (09:00)
--- NOTE | 2017-08-31 09:26 | PDCONSULT ---
Microwave Radio Technician Note: Patient is well known to myself and [facility]. Pacer implanted 29 AUG 2017 with outpatient follow up in the office yesterday. There was some altered mental status noted and the patient was subsequently admitted to [facility]. The patient was being seen in the office yesterday after appreciation of haematoma to the pacer site. Pressure dressing was placed. PO fluid intake has not been good (according to both patient and ). IV fluids were started, and today, the patient reports that he is feeling better. Recommendations for patient to maintain the pressure dressing to the pacer site as at present. Both heat and cool should be alternated to the site. Would continue IV fluids (finish the current one liter bag, and would up the rate to 150 ml/hr) and would give the patient a second bag today, prior to discharge. Will have patient seen in outpatient cardiology office on Saturday (afternoon) to reassess the site, the swelling, and the patient's PO intake of fluids. Patient and were in agreement with these plans.
--- NOTE | 2017-08-31 09:26 | PDCONSULT ---
Digital Sales Assistant Note: Patient is well known to myself and [facility]. Pacer implanted 29 AUG 2017 with outpatient follow up in the office yesterday. There was some altered mental status noted and the patient was subsequently admitted to [facility]. The patient was being seen in the office yesterday after appreciation of haematoma to the pacer site. Pressure dressing was placed. PO fluid intake has not been good (according to both patient and ). IV fluids were started, and today, the patient reports that he is feeling better. Recommendations for patient to maintain the pressure dressing to the pacer site as at present. Both heat and cool should be alternated to the site. Would continue IV fluids (finish the current one liter bag, and would up the rate to 150 ml/hr) and would give the patient a second bag today, prior to discharge. Will have patient seen in outpatient cardiology office on Saturday (afternoon) to reassess the site, the swelling, and the patient's PO intake of fluids. Patient and were in agreement with these plans.
--- NOTE | 2017-08-31 09:26 | PDCONSULT ---
Machine Bobbin Winder Note: Patient is well known to myself and [facility]. Pacer implanted 29 AUG 2017 with outpatient follow up in the office yesterday. There was some altered mental status noted and the patient was subsequently admitted to [facility]. The patient was being seen in the office yesterday after appreciation of haematoma to the pacer site. Pressure dressing was placed. PO fluid intake has not been good (according to both patient and ). IV fluids were started, and today, the patient reports that he is feeling better. Recommendations for patient to maintain the pressure dressing to the pacer site as at present. Both heat and cool should be alternated to the site. Would continue IV fluids (finish the current one liter bag, and would up the rate to 150 ml/hr) and would give the patient a second bag today, prior to discharge. Will have patient seen in outpatient cardiology office on Saturday (afternoon) to reassess the site, the swelling, and the patient's PO intake of fluids. Patient and were in agreement with these plans.
[2017-08-31 11:22] VITALS: BP 152/68; PULSE 60; RESP 20; TEMP 98.2; O2SAT 93
[2017-08-31] MEDS ORDERED: ASPIRIN 81 MG CHEWABLE TAB PO SCH ×2 (12:15)
[2017-08-31] MEDS ORDERED: IBRUTINIB 140 MG CAP PO SCH ×2 (12:30)
[2017-08-31] MEDS ORDERED: IBRUTINIB 420 MG PO SCH ×2 (12:45)
--- NOTE | 2017-08-31 13:04 | ASMTCMCOM ---
CM Note CM Note Notes: Patient admitted after presenting to a cardiology f/u appointment and showing AMS. He is s/p pacermaker placement 08/29. I spoke with patient's ; he has 24 hr nursing care at home and will f/u with cardiology in 2 days. No d/c needs identified. Date Signed: 08/31/2017 01:03 PM Electronically Signed By:Tracy Srivastava RN
[2017-08-31] MEDS ORDERED: NAPROXEN SODIUM 220 MG TAB PO SCH ×2 (21:00)
[2017-08-31] MEDS ORDERED: ATORVASTATIN CALCIUM 10 MG TAB PO SCH ×2 (21:00)
[2017-08-31] MEDS ORDERED: DOCUSATE SODIUM 100 MG CAP PO SCH ×2 (21:00)
[2017-09-01] MEDS ORDERED: CHOLECALCIFEROL VIT D3 2,000 UNITS TAB/CAP PO SCH ×2 (09:00)
[2017-09-01] MEDS ORDERED: SERTRALINE HCL 100 MG TAB PO SCH ×2 (09:00)
[2017-09-01] MEDS ORDERED: CYANO/VITAMIN B12 1000 MCG TAB PO SCH ×2 (09:00)
[2017-09-01] MEDS ORDERED: ASCORBIC ACID 500 MG TAB PO SCH ×2 (09:00)
--- NOTE | 2017-09-01 16:36 | ASDISCHSUM ---
Discharge Information Plan Status:Home with No Needs Medically Cleared to Leave:08/31/2017 Discharge Date:08/31/2017 02:52 PM CM D/C Disposition:Home, Routine, Self-Care ADT D/C Disposition:Home, Routine, Self-Care Projected Discharge Date:08/31/2017 12:00 AM Transportation at D/C:Family Discharge Delay Reason: Follow-Up Date:08/31/2017 12:00 AM Discharge Slot: Final Diagnosis:Presyncope S/P pacer Placement Information Patient Contact Information Contact Name:GWEN Relationship: Address:[address] [place] [address] City:[place] Alternate Phone: [facility]/Zip Code:[place] [address] Email: Financial Information Financial Class: Primary Plan Desc:MEDICARE OUTPATIENT Primary Plan Number:[id number] Secondary Plan Desc:YOSSI IBANEZO POS HMO SIG ADM Secondary Plan Number:[id number] Assessment Information [facility] CM Progress Note CM Note CM Note Notes: Patient admitted after presenting to a cardiology f/u appointment and showing AMS. He is s/p paceharryaker placement 08/29. I spoke with patient's ; he has 24 hr nursing care at home and will f/u with cardiology in 2 days. No d/c needs identified. Date Signed: 08/31/2017 01:03 PM Electronically Signed By:Tracy Srivastava RN Intervention Information
--- NOTE | 2017-09-01 16:36 | ASDISCHSUM ---
Discharge Information Plan Status:Home with No Needs Medically Cleared to Leave:08/31/2017 Discharge Date:08/31/2017 02:52 PM CM D/C Disposition:Home, Routine, Self-Care ADT D/C Disposition:Home, Routine, Self-Care Projected Discharge Date:08/31/2017 12:00 AM Transportation at D/C:Family Discharge Delay Reason: Follow-Up Date:08/31/2017 12:00 AM Discharge Slot: Final Diagnosis:Presyncope S/P pacer Placement Information Patient Contact Information Contact Name:GWEN Relationship: Address:[address] [place] [address] City:[place] Alternate Phone: [facility]/Zip Code:[place] [address] Email: Financial Information Financial Class: Primary Plan Desc:MEDICARE OUTPATIENT Primary Plan Number:[id number] Secondary Plan Desc:YOSSI IBANEZO POS HMO SIG ADM Secondary Plan Number:[id number] Assessment Information [facility] CM Progress Note CM Note CM Note Notes: Patient admitted after presenting to a cardiology f/u appointment and showing AMS. He is s/p paceharryaker placement 08/29. I spoke with patient's ; he has 24 hr nursing care at home and will f/u with cardiology in 2 days. No d/c needs identified. Date Signed: 08/31/2017 01:03 PM Electronically Signed By:Tracy Srivastava RN Intervention Information
--- NOTE | 2017-09-01 16:36 | ASDISCHSUM ---
Discharge Information Plan Status:Home with No Needs Medically Cleared to Leave:08/31/2017 Discharge Date:08/31/2017 02:52 PM CM D/C Disposition:Home, Routine, Self-Care ADT D/C Disposition:Home, Routine, Self-Care Projected Discharge Date:08/31/2017 12:00 AM Transportation at D/C:Family Discharge Delay Reason: Follow-Up Date:08/31/2017 12:00 AM Discharge Slot: Final Diagnosis:Presyncope S/P pacer Placement Information Patient Contact Information Contact Name:GWEN Relationship: Address:[address] [place] [address] City:[place] Alternate Phone: [facility]/Zip Code:[place] [address] Email: Financial Information Financial Class: Primary Plan Desc:MEDICARE OUTPATIENT Primary Plan Number:[id number] Secondary Plan Desc:YOSSI IBANEZO POS HMO SIG ADM Secondary Plan Number:[id number] Assessment Information [facility] CM Progress Note CM Note CM Note Notes: Patient admitted after presenting to a cardiology f/u appointment and showing AMS. He is s/p paceharryaker placement 08/29. I spoke with patient's ; he has 24 hr nursing care at home and will f/u with cardiology in 2 days. No d/c needs identified. Date Signed: 08/31/2017 01:03 PM Electronically Signed By:Tracy Srivastava RN Intervention Information
== END 2017-08-31 14:52 | disposition home or self-care (01) ==
LOC: F2W 20:09
PROVIDERS: ADMIT Family Medicine; ATTEND Internal Medicine
DX: R55 Syncope and collapse (principal); R41.82 Altered mental status, unspecified; E86.1 Hypovolemia; E86.0 Dehydration; D64.9 Anemia, unspecified; I10 Essential (primary) hypertension; E78.5 Hyperlipidemia, unspecified; K59.00 Constipation, unspecified; I45.10 Unspecified right bundle-branch block; C85.90 Non-Hodgkin lymphoma, unspecified, unspecified site; G81.94 Hemiplegia, unspecified affecting left nondominant side; F32.9 Major depressive disorder, single episode, unspecified; Z79.82 Long term (current) use of aspirin; Z85.46 Personal history of malignant neoplasm of prostate; Z86.19 Personal history of other infectious and parasitic diseases; Z95.0 Presence of cardiac pacemaker
CPT/HCPCS: 70450; 93005; G0378; C1769; C1785; C1898; J0690; J1644; J2250; J3010

== ENCOUNTER → 2018-10-23 | Outpatient (CLI) | payer OTHER | LOC: BMCIMAGING 14:22 | PROVIDERS: ATTEND Internal Medicine | DX: R05 Cough (principal) ==

== ENCOUNTER → 2018-11-06 | Outpatient (CLI) | payer OTHER | LOC: FIMAGING 13:37 | PROVIDERS: ATTEND Internal Medicine | DX: G93.89 Other specified disorders of brain (principal); I25.2 Old myocardial infarction ==